=== PATIENT | male | born 1935 | race Caucasian/White ===

== ENCOUNTER 2018-08-26 06:27 | Day surgery (SDC) | payer MEDICARE ==
[2018-08-20 15:38] VITALS: BMI 23.6
[~2018-08-26 06:27] MED LIST: HEPARIN SODIUM,PORCINE 5,000 UNIT/ML 1 ML VIAL SQ ONE; ceFAZolin IN SWFI 2 GM/20 ML SYRINGE IVP ONE
[2018-08-26] MEDS ORDERED: LIDOCAINE 1% 20 ML VIAL (10MG/ML) FOR IV START INTRADERMA ONE ×2 (06:57→07:00)
[2018-08-26] MEDS ORDERED: LACTATED RINGERS 1,000 ML IV ONE ×4 (06:58→07:00)
[2018-08-26 07:04] LABS: Glucose,Whole Blood 126 mg/dL (75-99)
[2018-08-26] MEDS ORDERED: DEXAMETHASONE SOD PHOSPHATE 10 MG/ML 1 ML VIAL IV ONE (07:13)
[2018-08-26] MEDS ORDERED: ONDANSETRON 4 MG/2 ML VIAL IVP ONE ×2 (07:14→09:34)
[2018-08-26] MEDS ORDERED: MIDAZOLAM (PF) 2 MG/2 ML VIAL IV ONE (07:23)
[2018-08-26] MEDS ORDERED: fentaNYL (PF) 50 MCG/ML 2 ML AMP IV ONE (07:23)
[2018-08-26] MEDS ORDERED: LIDOCAINE 2%-EPI 1:100,000 20 ML VIAL ONE (07:54)
[2018-08-26] MEDS ORDERED: GLYCOPYRROLATE 0.2 MG/ML 2 ML VIAL ONE (07:54)
[2018-08-26] MEDS ORDERED: SUCCINYLCHOLINE CHLORIDE 100 MG/5 ML SYR IV ONE (07:54)
[2018-08-26] MEDS ORDERED: MIDAZOLAM 2 MG/2 ML VIAL ONE (07:54)
[2018-08-26] MEDS ORDERED: ROCURONIUM BROMIDE 10 MG/ML 10 ML VIAL IV ONE (07:54)
[2018-08-26] MEDS ORDERED: MORPHINE SULFATE 10 MG/ML SYRINGE ONE (07:54)
[2018-08-26] MEDS ORDERED: ROPIVACAINE 5 MG/ML 30 ML VIAL ONE (07:54)
[2018-08-26] MEDS ORDERED: fentaNYL (PF) 50 MCG/ML 2 ML AMP ONE (07:54)
[2018-08-26] MEDS ORDERED: LIDOCAINE 1% INJ 10MG/ML (20 ML MDV) ONE (07:54)
[2018-08-26] MEDS ORDERED: PROPOFOL 10 MG/ML 20 ML VIAL IV ONE (07:54)
[2018-08-26] MEDS ORDERED: NEOSTIGMINE 1 MG/ML 10 ML VIAL ONE (07:54)
--- NOTE | 2018-08-26 07:59 | P.ANPRN ---
Procedure Note - Anesthesia - Nerve Block Performed Right Transversus Abdominis Single Time Out Performed: Yes Date of Procedure: 08/26/18 Procedure Start Time: 07:20 Location of Patient Procedure: PreOp Indication: Acute Post-Operative Pain Specifically requested for management of pain by DrYeimy: Choco Parnell Sedation Type: Sedate with meaningful contact maintained Preparation: Sterile Prep Position: Supine Catheter: None Needle Gauge: 20, 21 Technique: Ultrasound Injectate: Other (see comment) (0.25% ropivacaine/0.5% lidocaine 30 mL) Adjunct: Epinephrine (see comment for dilution ratio) (1:200,000) Blood Aspirated: No Pain Paresthesia on Injection Noted: No Resistance on Injection: Normal Events: Uneventful and Well Tolerated
[2018-08-26] MEDS ORDERED: BUPIVACAIN-EPI 0.5%-1:200,000 30 ML VIAL SQ ONE (08:32)
[2018-08-26 09:08] VITALS: TEMP 94
--- NOTE | 2018-08-26 09:19 | P.OP ---
Date of Procedure: 08/26/18 Preoperative Diagnosis: Right inguinal hernia Postoperative Diagnosis: Bilateral inguinal hernia Procedure(s) Performed: Laparoscopic robotic-assisted repair of bilateral inguinal hernia Excision of right cord lipoma Anesthesia: PRUDENCE Surgeon: Choco Parnell Estimated Blood Loss (ml): 5 Pathology: other (Right cord lipoma) Condition: stable Disposition: PACU Description of Procedure: The patient's placed on the operating table in the supine position. The patient received general anesthesia. The patient's abdomen was prepped and draped in usual sterile fashion. The skin was anesthetized 1% local Xylocaine at the incision sites. Using an 11 blade a skin incision was made at the umbilicus. The fascia was grasped with a Leslie and then the peritoneal cavity was entered with the Veress needle. Position of the Veress needle was confirmed with a positive drop test. After adequate insufflation a 5 mm trocar was placed into the peritoneal cavity. The Laparoscope was placed the peritoneal cavity. And a robotic 8 mm trocar was placed in the right lateral position and then another 8 mm robotic trochars placed in the left lateral position. The original 5 mm trocar was exchanged for a 12 mm trocar. The patient was placed in reverse Trendelenburg and then the patient was docked to the robot. Next the peritoneum over top of the right inguinal hernia was incised and then using blunt and sharp dissection and electrocautery the hernia sac was dissected free from the floor of the inguinal canal. The cord lipoma was dissected free from the spermatic cord and sent to pathology. The hernia sac was completely reduced into the peritoneal cavity. And then using the Pro alteration inspector mesh the hernia was repaired. The peritoneum was then sutured with 20V lock suture. Next the peritoneum over top of the left inguinal hernia was incised and then u sing blunt and sharp dissection and electrocautery the hernia sac was dissected free from the floor of the inguinal canal. The hernia sac was completely reduced into the peritoneal cavity. And then using the Pro alteration inspector mesh the hernia was repaired. The peritoneum was then sutured with 20V lock suture. The patient was then undocked the robot. The needle was withdrawn from the peritoneal cavity. The umbilical trocar site was closed with 0 Ethibond suture. The skin was closed interrupted 3-0 Monocryl suture. Dermabond dressing was applied. Patient was sent to recovery in stable condition.
[2018-08-26 09:23] LABS: Glucose,Whole Blood 227 mg/dL (75-99)
[2018-08-26] MEDS ORDERED: INSULIN ASPART (NovoLOG) 100 UNIT/ML VIAL SQ ONE (09:26)
[2018-08-26] MEDS ORDERED: MORPHINE SULFATE 4 MG/ML SYRINGE IVP ONE (09:35)
[2018-08-26] MEDS ORDERED: HYDROcodone/APAP 5-325MG 1 EACH TAB PO ONE (10:17)
--- NOTE | 2018-08-26 10:24 | P.GSHP ---
History of Present Illness H&P Date: 08/26/18 Chief Complaint: Right inguinal hernia This 83-year-old male who has developed complaints of pain in his right groin. He seen Sergio found have a right inguinal hernia. He presents today for laparoscopic robotic-assisted repair. Past Medical History Past Medical History: Diabetes Mellitus, GERD/Reflux, Osteoarthritis (OA) Additional Past Medical History / Comment(s): not sure why he takes heart medications-thinks preventative due to diabetes, History of Any Multi-Drug Resistant Organisms: None Reported Past Surgical History: Appendectomy, Back Surgery, Orthopedic Surgery, Tonsillectomy Additional Past Surgical History / Comment(s): LT ROTATOR CUFF REPAIR , Past Anesthesia/Blood Transfusion Reactions: No Reported Reaction Smoking Status: Former smoker - Past Family History Mother Family Medical History: No Reported History Medications and Allergies Home Medications Medication Instructions Recorded Confirmed Type Cholecalciferol (Vitamin D3) 2,000 unit PO BID 08/20/18 08/26/18 History [Vitamin D3] L.acidoph,Paracasei, B.lactis 1 each PO DAILY 08/20/18 08/26/18 History [Probiotic] Losartan [Cozaar] 25 mg PO DAILY 08/20/18 08/26/18 History Lutein Tab 1 tab PO DAILY 08/20/18 08/26/18 History Magnesium Tab 1,000 mg PO HS 08/20/18 08/26/18 History Omeprazole 40 mg PO DAILY PRN 08/20/18 08/26/18 History Prostate Essential 1 tab PO DAILY 08/20/18 08/26/18 History Vitamin B Complex 1 each PO DAILY 08/20/18 08/26/18 History Vitamin E (Dl,Tocopheryl Acet) 400 unit PO DAILY 08/20/18 08/26/18 History [Vitamin E] Vitamin K Tab 100 mcg PO DAILY 08/20/18 08/26/18 History glipiZIDE [Glucotrol] 5 mg PO AC-BRKFST 08/20/18 08/26/18 History metFORMIN HCL [metFORMIN HCL ER] 750 mg PO BID 08/20/18 08/26/18 History Docusate [Colace] 100 mg PO BID #20 capsule 08/26/18 Rx HYDROcodone/APAP 5-325MG [Curtis 1 tab PO Q6HR PRN #10 tab 08/26/18 Rx 5-325] Allergies Allergy/AdvReac Type Severity Reaction Status Date / Time No Known Allergies Allergy Verified 08/26/18 06:58 Surgical - Exam Vital Signs Temp Pulse Resp BP Pulse Ox 97.4 F L 88 16 163/74 99 08/26/18 06:51 08/26/18 06:51 08/26/18 06:51 08/26/18 06:51 08/26/18 06:51 - General well developed, no distress - Eyes PERRL - ENT normal pinna - Neck no masses - Respiratory normal expansion - Cardiovascular Rhythm: regular - Abdomen Abdomen: soft, non tender Hernia: inguinal (Right inguinal hernia) Results - Labs Abnormal Lab Results - Last 24 Hours (Table) 08/26/18 08/26/18 Range/Units 06:55 09:15 POC Glucose (mg/dL) 126 H 227 H (75-99) mg/dL Assessment and Plan Assessment: Right angle hernia. We'll perform laparoscopic robotic-assisted repair.
[2018-08-26 10:34] LABS: Glucose,Whole Blood 206 mg/dL (75-99)
[2018-08-26 10:38] VITALS: BP 126/75; PULSE 86; RESP 18
== END 2018-08-26 11:19 | disposition home or self-care (01) ==
LOC: OR 06:27
PROVIDERS: ATTEND Surgery
DX: K40.20 Bilateral inguinal hernia, without obstruction or gangrene, not specified as recurrent (principal); D17.6 Benign lipomatous neoplasm of spermatic cord; E11.9 Type 2 diabetes mellitus without complications; K21.9 Gastro-esophageal reflux disease without esophagitis; M19.90 Unspecified osteoarthritis, unspecified site; Z87.891 Personal history of nicotine dependence; Z79.84 Long term (current) use of oral hypoglycemic drugs; Z79.891 Long term (current) use of opiate analgesic; Z79.899 Other long term (current) drug therapy; Z97.2 Presence of dental prosthetic device (complete) (partial)
CPT/HCPCS: 64486; 88304; 49650; C1781; J2250 ×2; J2270 ×2; J1644; J1100; J2710; J2405; J2001; J3010; J2795; J0330; J2704; J0690

== ENCOUNTER 2020-11-17 15:11 | Emergency (ER) | payer MEDICARE, OTHER ==
--- NOTE | 2020-11-17 16:15 | ED ---
Fall HPI <Jasmyn Landa - Last Filed: 11/17/20 16:15> - General Source: patient, family - History of Present Illness MD Complaint: fall -: hour(s) (6) Time: 11:00 Fall From: standing When Fall Occurred: 4-6 hours [place] Fall Witnessed: yes, by bystander Loss of Consciousness: none Prolonged Down Time?: no Symptoms Prior to Fall: none Location: face Location - Extremities: Right: Hand (wrist) Severity scale (1-10): 3 Quality: aching Context: tripped/slipped Associated Symptoms: other (facial laceration, bruising to right eye) <Kali Singletary - Last Filed: 11/17/20 22:37> - General Stated Complaint: Fall/Head injury Time Seen by Provider: 11/17/20 16:35 - History of Present Illness Initial Comments: Sarath is an 85yo M who presents to the emergency department today via private vehicle for evaluation of injury to the right wrist and right side of his forehead after a trip and fall at home. Patient reports he tripped over the tongue of a trailer onto outstretched right hand and hitting his head on the ground. Did not lose consciousness. Patient reports mild pain in his wrist 3/10 intensity. Patient states that his last tetanus vaccine was "not too long ago" (Jasmyn Landa) - Related Data Home Medications Medication Instructions Recorded Confirmed Cholecalciferol (Vitamin D3) 2,000 unit PO BID 08/20/18 11/17/20 [Vitamin D3] Losartan [Cozaar] 25 mg PO DAILY 08/20/18 11/17/20 Vitamin B Complex 1 cap PO DAILY 08/20/18 11/17/20 Vitamin E (Dl,Tocopheryl Acet) 400 unit PO DAILY 08/20/18 11/17/20 [Vitamin E] glipiZIDE [Glucotrol] 5 mg PO AC-BRKFST 08/20/18 11/17/20 metFORMIN HCL [metFORMIN HCL ER] 750 mg PO BID 08/20/18 11/17/20 Ascorbic Acid [Vitamin C] 1,000 mg PO DAILY 11/17/20 11/17/20 Cyanocobalamin (Vitamin B-12) 1,000 mcg PO DAILY 11/17/20 11/17/20 [Vitamin B-12] Zinc 50 mg PO DAILY 11/17/20 11/17/20 Previous Rx's Medication Instructions Recorded Cephalexin [Keflex] 500 mg PO Q6H 7 Days #28 cap 11/17/20 Allergies Allergy/AdvReac Type Severity Reaction Status Date / Time No Known Allergies Allergy Verified 11/17/20 18:07 Review of Systems ROS Other: All systems not noted in ROS Statement are negative. <Jasmyn Landa P - Last Filed: 11/17/20 16:15> ROS Other: All systems not noted in ROS Statement are negative. <Kali Singletary - Last Filed: 11/17/20 22:37> ROS Statement: Those systems with pertinent positive or pertinent negative responses have been documented in the HPI. Past Medical History Past Medical History: Diabetes Mellitus, GERD/Reflux, Osteoarthritis (OA) Additional Past Medical History / Comment(s): not sure why he takes heart medications-thinks preventative due to diabetes, History of Any Multi-Drug Resistant Organisms: None Reported Past Surgical History: Appendectomy, Back Surgery, Orthopedic Surgery, Tonsillectomy Additional Past Surgical History / Comment(s): LT ROTATOR CUFF REPAIR , Past Anesthesia/Blood Transfusion Reactions: No Reported Reaction Past Psychological History: No Psychological Hx Reported Past Alcohol Use History: Rare Additional Past Alcohol Use History / Comment(s): quit smoking 60 yrs ago, smoked for 2 yrs, 1 PPD Past Drug Use History: None Reported - Past Family History Mother Family Medical History: No Reported History <Jasmyn Landa P - Last Filed: 11/17/20 16:15> General Exam <Jasmyn Landa P - Last Filed: 11/17/20 16:15> General appearance: alert, in no apparent distress Head exam: Present: normocephalic, other (Ecchymosis to right thigh, 1 cm laceration to the right eyebrow) Eye exam: Present: PERRL, EOMI, other (Bruising and swelling to the right upper eyelid, no pain with extraocular eye movements). Absent: scleral icterus, nystagmus Pupils: Present: normal accommodation ENT exam: Present: normal exam, normal oropharynx, mucous membranes moist, other (Bruising and swelling to the right upper lip) Neck exam: Present: normal inspection, tenderness (Perispinal trapezius), full ROM. Absent: meningismus, lymphadenopathy Respiratory exam: Present: normal lung sounds bilaterally. Absent: respiratory distress, wheezes, rales, rhonchi, stridor, chest wall tenderness Cardiovascular Exam: Present: regular rate, normal rhythm, normal heart sounds. Absent: systolic murmur, diastolic murmur, rubs, gallop, clicks GI/Abdominal exam: Present: soft, normal bowel sounds. Absent: distended, tenderness, guarding, rebound, rigid Extremities exam: Present: normal inspection, full ROM, normal capillary refill. Absent: tenderness, pedal edema, joint swelling, calf tenderness Right Elbow exam: Present: normal inspection Forearm Wrist exam: Present: normal inspection, full ROM, tenderness (Right wrist). Absent: swelling, abrasion, laceration, ecchymosis, deformity, crepitus, erythema Hand Wrist exam: Present: normal inspection Neurosensory exam: Present: radial nerve intact, ulnar nerve intact, median nerve intact Vascular: Present: normal capillary refill, radial pulse. Absent: vascular compromise Back exam: Absent: tenderness, CVA tenderness (R), CVA tenderness (L), muscle spasm, vertebral tenderness Expanded Back exam: Present: saddle anesthesia Back exam: Negative Straight Leg Raising: Left, Right Neurological exam: Present: alert, oriented X3, CN II-XII intact Expanded Patient oriented to: Present: person, place, time Speech: Present: fluid speech Cranial nerves: EOM's Intact: Normal, Gag Reflex: Normal, Tongue Deviation: Normal, Nystagmus: Normal Cerebellar function: Finger to Nose: Normal, Heel to [place]: Normal Motor strength exam: RUE: 5, LUE: 5, RLE: 5, LLE: 5 Eye Response: (4) open spontaneously Motor Response: (6) obeys commands Verbal Response: (5) oriented Vito Total: 15 Psychiatric exam: Present: normal affect, normal mood Skin exam: Present: warm, dry, intact, normal color. Absent: rash, cyanosis, diaphoretic <Kali Singletary - Last Filed: 11/17/20 22:37> - General Exam Comments Initial Comments: Physical Exam GENERAL: Patient is well-developed and well-nourished. Patient is nontoxic and well-hydrated and is in no distress. HENT: Abrasion left forehead EYES: PERRL, EOMI PULMONARY: Unlabored respirations. CARDIOVASCULAR: RRR Warm and well perfused extremities ABDOMEN: Non-distended SKIN: No rashes or bruising : Deferred NEUROLOGIC: Alert and oriented Normal speech Normal gait MUSCULOSKELETAL: Moving all extremities with no apparent injury PSYCHIATRIC: No SI/HIa (Jasmyn Landa) Course Vital Signs 11/17/20 11/17/20 16:13 18:15 Temperature 97.9 F Pulse Rate 91 81 Respiratory 20 18 Rate Blood Pressure 150/76 151/79 O2 Sat by Pulse 99 97 Oximetry Procedures - Laceration Laceration #1 Consent Obtained: verbal consent Indication: laceration Site: face Size (cm): 1 Description: linear Depth: simple, single layer Pre-repair: irrigated extensively Type of Sutures: other (dermal glue) Patient Tolerated Procedure: well <Kali Singletary - Last Filed: 11/17/20 22:37> Medical Decision Making <Kali Singletary - Last Filed: 11/17/20 22:37> - Medical Decision Making 1 cm laceration to the right eyebrow closed with dermal glue after irrigation with normal saline. Patient states that his tetanus shot is up-to-date. He'll be placed on antibiotics prophylactically. CT of the head shows no intracranial hemorrhage, mass effect or midline shift. C-spine shows no acute fracture or dislocation. Lung apices are clear. X-ray of the right wrist shows no acute fracture or dislocation. There is no significant soft tissue swelling. Patient will be discharged with follow-up with his primary care doctor and directed to return for any worsening symptoms including signs of infection, fever increased pain, headache. (Kali Singletary) Disposition <Jasmyn Landa - Last Filed: 11/17/20 16:15> Is patient prescribed a controlled substance at d/c from ED?: No Time of Disposition: 18:45 <Kali Singletary - Last Filed: 11/17/20 22:37> Clinical Impression: Fall, Laceration, Wrist injury Disposition: HOME SELF-CARE Condition: Good Instructions (If sedation given, give patient instructions): Wrist Injury (ED), Fall Prevention for Older Adults (ED), Skin Adhesive Care (ED) Additional Instructions: Keep wound clean and dry, take antibiotics as prescribed, return to the emergency room with any new or worsening symptoms increased pain, headache, or signs of infection including redness, drainage or fever. Prescriptions: Cephalexin [Keflex] 500 mg PO Q6H 7 Days #28 cap Referrals: Isac Wallace MD [Primary Care Provider] - 1-2 days Orville Sanchez DO [Doctor of Osteopathic Medicine] - 1-2 days
[2020-11-17 16:16] VITALS: TEMP 97.9
[2020-11-17] MEDS ORDERED: TOPICAL SKIN ADHESIVE 1 EACH AMP TOPICAL ONE (16:47)
--- NOTE | 2020-11-17 17:20 | XR ---
EXAMINATION TYPE: XR wrist complete RT DATE OF EXAM: 11/17/2020 COMPARISON: NONE HISTORY: . Fall, injury, no deformity. TECHNIQUE: AP, oblique, lateral, and scaphoid views of the right wrist. FINDINGS: No acute fracture. No dislocation. There are degenerative changes worst at the first and se cond carpometacarpal joints. There are large loose bodies at the radial aspect of the hand at the lev el of the carpal bones. Normal mineralization. No significant soft tissue swelling. IMPRESSION: 1. No acute fracture or dislocation. 2. Degenerative changes and large loose bodies as above.
[2020-11-17 18:30] VITALS: BP 151/79; PULSE 81; RESP 18
--- NOTE | 2020-11-17 18:36 | CT ---
EXAMINATION TYPE: CT brain ronnie hickey con DATE OF EXAM: 11/17/2020 COMPARISON: HISTORY: Fall. CT DLP: 1405.1 mGycm Automated exposure control for dose reduction was used. TECHNIQUE: CT scan of the head and cervical spine are performed without contrast. FINDINGS: There is no acute intracranial hemorrhage, mass effect, or midline shift identified. No abnormal extra axial fluid collection. The ventricles and sulci are within normal limits in size. Gen eralized volume loss. Patchy white matter hypodensities likely sequela of chronic microvascular ische delmi change. Coarse calcification of the falx. No depressed calvarial fracture. Mastoid air cells are clear. Mucosal thickening of the left maxillary sinus. Periapical abscesses. Dextrocurvature of the cervical spine. Vertebral body heights are normal. There is no acute fracture. Multifactorial multilevel degenerative changes. No prevertebral soft tissue swelling. No dominant th yroid nodule. Lung apices are clear. IMPRESSION: 1. There is no acute fracture or dislocation evident in the cervical spine. 2. No acute intracranial hemorrhage, mass effect, or midline shift is seen.
== END 2020-11-17 19:04 | disposition home or self-care (01) ==
LOC: EC 15:11
DX: S01.111A Laceration without foreign body of right eyelid and periocular area, initial encounter (principal); S69.91XA Unspecified injury of right wrist, hand and finger(s), initial encounter; S00.531A Contusion of lip, initial encounter; E11.9 Type 2 diabetes mellitus without complications; Z79.84 Long term (current) use of oral hypoglycemic drugs; Z87.891 Personal history of nicotine dependence; W01.0XXA Fall on same level from slipping, tripping and stumbling without subsequent striking against object, initial encounter; Y92.89 Other specified places as the place of occurrence of the external cause
CPT/HCPCS: 12011; 70450; 72125; 99284

== ENCOUNTER → 2020-11-21 | Outpatient (CLI) | payer OTHER ==
--- NOTE | 2020-11-23 08:55 | CT ---
EXAMINATION TYPE: CT chest wo/w con DATE OF EXAM: 11/21/2020 COMPARISON: Outside chest x-ray October 27, 2020 HISTORY: Abnormal xray. CT DLP: 435.2 mGycm. Automated Exposure Control for Dose Reduction was Utilized. TECHNIQUE: CT scan of the thorax is performed following without and with IV Contrast, patient inject ed with 80 mL of Isovue M300. FINDINGS: LUNGS: Mild biapical pleural/parenchymal scarring. Dependent atelectasis bilateral lower lobes. No oliva spicious greater than 5 mm nodules or masses with particular attention to the left upper lobe at the area of x-ray concern. No pleural effusion or pneumothorax seen bilaterally. MEDIASTINUM: There are no greater than 1 cm hilar or mediastinal lymph nodes. No cardiomegaly or p ericardial effusion is seen. Moderate to severe coronary artery calcification is present. OTHER: Slight scoliosis in the upper thoracic spine. Exaggerated kyphosis cervical thoracic junction. Moderate disc space narrowing T6-T7 level. IMPRESSION: No suspicious pulmonary nodules or masses. No suspicious thoracic adenopathy. No acute pu lmonary process.
== END | disposition home or self-care (01) ==
LOC: RADCTMAIN 10:33
DX: R91.8 Other nonspecific abnormal finding of lung field (principal)
CPT/HCPCS: 82565; 84520; 71270; Q9967

== ENCOUNTER 2021-02-16 14:23 | Inpatient (IN) | payer MEDICARE ==
[2021-02-16 15:14] LABS: Basophils % (A) 1 %; Eosinophils % (A) 0 %; HCT 40.9 % (39.0-53.0); HGB 13.9 gm/dL (13.0-17.5); Lymphocytes # (A) 0.5 k/uL (1.0-4.8); Lymphocytes % (A) 9 %; MCH 32.5 pg (25.0-35.0); MCHC 33.9 g/dL (31.0-37.0); MCV 95.8 fL (80.0-100.0); Mean Platelet Volume 6.9; Monocytes # (A) 0.3 k/uL (0-1.0); Monocytes % (A) 6 %; Neutrophils # (A) 4.8 k/uL (1.3-7.7); Neutrophils % (A) 83 %; Platelet Count 381 k/uL (150-450); RBC 4.27 m/uL (4.30-5.90); RDW 13.2 % (11.5-15.5); WBC 5.9 k/uL (3.8-10.6)
[2021-02-16 15:23] LABS: INR 0.9 (<1.2); Partial Thromboplastin Time 22.4 sec (22.0-30.0); Prothrombin Time 10.1 sec (9.0-12.0)
[2021-02-16 15:27] LABS: Total Bilirubin 1.2 mg/dL (0.2-1.3)
[2021-02-16] MEDS ORDERED: DEXAMETHASONE SOD PHOSPHATE 10 MG/ML 1 ML VIAL IVP STA (18:32)
[2021-02-16] MEDS ORDERED: SODIUM CHLORIDE 0.9% 1,000 ML IV ONE (18:32)
--- NOTE | 2021-02-16 18:35 | XR ---
EXAMINATION TYPE: XR chest 2V DATE OF EXAM: 02/16/2021 COMPARISON: NONE HISTORY: Short of breath TECHNIQUE: 2 views FINDINGS: Heart is normal. There is coarse interstitial and to a lesser extent airspace infiltrate in both lungs. There are no hilar masses. Mediastinum is normal. There is no pleural effusion. IMPRESSION: Bilateral patchy pulmonary infiltrates. Normal heart.
[2021-02-16 19:17] LABS: C Reactive Protein 18.2 mg/dL (<1.0)
--- NOTE | 2021-02-16 19:22 | ED ---
General Adult HPI - General Chief complaint: Shortness of Breath Stated complaint: Covid+, SOB Time Seen by Provider: 02/16/21 18:05 Source: patient Mode of arrival: wheelchair Limitations: no limitations - History of Present Illness Initial comments: 86 year-old male patient presents for weakness, fatigue, decreased appetite and shortness of breath. He was diagnosed with COVID on Friday, did have monoclonal antibody infusion. He believes he has been sick between 2-3 weeks. He states he is not eating or drinking. He has lost 8lbs. He has not taken any other medications for his symptoms. Did start breathing treatments at home yesterday. Family states he has had oxygen saturations in the low 80s. He has history of diabetes and acid reflux. Patient denies any recent rash, chest pain, abdominal pain, nausea, vomiting, diarrhea, constipation, back pain, numbness, tingling, dizziness, hematuria, dysuria, urinary urgency, urinary frequency, headache, visual changes, or any other complaints. - Related Data Home Medications Medication Instructions Recorded Confirmed Cholecalciferol (Vitamin D3) 2,000 unit PO BID 08/20/18 02/16/21 [Vitamin D3] Losartan [Cozaar] 25 mg PO DAILY 08/20/18 02/16/21 Vitamin B Complex 1 cap PO DAILY 08/20/18 02/16/21 Vitamin E (Dl,Tocopheryl Acet) 400 unit PO DAILY 08/20/18 02/16/21 [Vitamin E] glipiZIDE [Glucotrol] 5 mg PO AC-BRKFST 08/20/18 02/16/21 metFORMIN HCL [metFORMIN HCL ER] 750 mg PO BID 08/20/18 02/16/21 Ascorbic Acid [Vitamin C] 1,000 mg PO DAILY 11/17/20 02/16/21 Cyanocobalamin (Vitamin B-12) 1,000 mcg PO DAILY 11/17/20 02/16/21 [Vitamin B-12] Zinc 50 mg PO DAILY 11/17/20 02/16/21 Albuterol Nebulized [Ventolin 2.5 mg INHALATION RT-Q6H PRN 02/16/21 02/16/21 Nebulized] Allergies Allergy/AdvReac Type Severity Reaction Status Date / Time No Known Allergies Allergy Verified 02/16/21 14:43 Review of Systems ROS Statement: Those systems with pertinent positive or pertinent negative responses have been documented in the HPI. ROS Other: All systems not noted in ROS Statement are negative. Past Medical History Past Medical History: Diabetes Mellitus, GERD/Reflux, Osteoarthritis (OA) Additional Past Medical History / Comment(s): not sure why he takes heart medications-thinks preventative due to diabetes, History of Any Multi-Drug Resistant Organisms: None Reported Past Surgical History: Appendectomy, Back Surgery, Orthopedic Surgery, Tonsillectomy Additional Past Surgical History / Comment(s): LT ROTATOR CUFF REPAIR , Past Anesthesia/Blood Transfusion Reactions: No Reported Reaction Past Psychological History: No Psychological Hx Reported Smoking Status: Former smoker Past Alcohol Use History: Rare Past Drug Use History: None Reported - Past Family History Mother Family Medical History: No Reported History General Exam Limitations: no limitations General appearance: alert, in no apparent distress, other (This is a well-dev eloped, well-nourished elderly male patient in no acute distress.) Eye exam: Present: normal appearance, PERRL, EOMI. Absent: scleral icterus, conjunctival injection, periorbital swelling ENT exam: Present: normal exam, normal oropharynx, mucous membranes moist Respiratory exam: Present: normal lung sounds bilaterally. Absent: respiratory distress, wheezes, rales, rhonchi, stridor Cardiovascular Exam: Present: regular rate, normal rhythm, normal heart sounds. Absent: systolic murmur, diastolic murmur, rubs, gallop, clicks GI/Abdominal exam: Present: soft, normal bowel sounds. Absent: distended, tenderness, guarding, rebound, rigid Neurological exam: Present: alert, oriented X3, CN II-XII intact Psychiatric exam: Present: normal affect, normal mood Skin exam: Present: warm, dry, intact, normal color. Absent: rash Course Vital Signs 02/16/21 02/16/21 14:43 19:21 Temperature 98.0 F Pulse Rate 95 Respiratory 20 22 Rate Blood Pressure 112/62 O2 Sat by Pulse 96 Oximetry Medical Decision Making - Medical Decision Making 86-year-old male patient presented to the emergency department for evaluation of weakness, fatigue, shortness of breath after being diagnosed with COVID-19. Physical examination did reveal clear lung sounds. Soft nontender abdomen. Patient does exhibit weakness. Labs reviewed and did reveal elevated LDH and CRP. He is given dexamethasone IV, started on vitamins. Given IV fluids. He'll be admitted to the hospital for weakness and failure to thrive. He does have bilateral patchy pneumonia on x-ray. Patient family is agreeable this plan. Case discussed with my attending Dr. Nava. - Lab Data Result diagrams: 02/16/21 15:10 02/16/21 15:10 Lab Results 02/16/21 02/16/21 02/16/21 Range/Units 15:10 15:10 15:10 WBC 5.9 (3.8-10.6) k/uL RBC 4.27 L (4.30-5.90) m/uL Hgb 13.9 (13.0-17.5) gm/dL Hct 40.9 (39.0-53.0) % MCV 95.8 (80.0-100.0) fL MCH 32.5 (25.0-35.0) pg MCHC 33.9 (31.0-37.0) g/dL RDW 13.2 (11.5-15.5) % Plt Count 381 (150-450) k/uL MPV 6.9 Neutrophils % 83 % Lymphocytes % 9 % Monocytes % 6 % Eosinophils % 0 % Basophils % 1 % Neutrophils # 4.8 (1.3-7.7) k/uL Lymphocytes # 0.5 L (1.0-4.8) k/uL Monocytes # 0.3 (0-1.0) k/uL Eosinophils # 0.0 (0-0.7) k/uL Basophils # 0.0 (0-0.2) k/uL PT 10.1 (9.0-12.0) sec INR 0.9 (<1.2) APTT 22.4 (22.0-30.0) sec Sodium 137 (137-145) mmol/L Potassium 4.0 (3.5-5.1) mmol/L Chloride 102 (98-107) mmol/L Carbon Dioxide 25 (22-30) mmol/L Anion Gap 10 mmol/L BUN 20 (9-20) mg/dL Creatinine 1.12 (0.66-1.25) mg/dL Est GFR (CKD-EPI)AfAm 69 (>60 ml/min/1.73 sqM) Est GFR (CKD-EPI)NonAf 59 (>60 ml/min/1.73 sqM) Glucose 284 H (74-99) mg/dL Calcium 9.0 (8.4-10.2) mg/dL Total Bilirubin 1.2 (0.2-1.3) mg/dL AST 42 (17-59) U/L ALT 36 (4-49) U/L Alkaline Phosphatase 137 H (38-126) U/L Lactate Dehydrogenase (313-618) U/L Troponin I (0.000-0.034) ng/mL C-Reactive Protein (<1.0) mg/dL Total Protein 6.0 L (6.3-8.2) g/dL Albumin 3.0 L (3.5-5.0) g/dL 02/16/21 02/16/21 Range/Units 15:10 18:50 WBC (3.8-10.6) k/uL RBC (4.30-5.90) m/uL Hgb (13.0-17.5) gm/dL Hct (39.0-53.0) % MCV (80.0-100.0) fL MCH (25.0-35.0) pg MCHC (31.0-37.0) g/dL RDW (11.5-15.5) % Plt Count (150-450) k/uL MPV Neutrophils % % Lymphocytes % % Monocytes % % Eosinophils % % Basophils % % Neutrophils # (1.3-7.7) k/uL Lymphocytes # (1.0-4.8) k/uL Monocytes # (0-1.0) k/uL Eosinophils # (0-0.7) k/uL Basophils # (0-0.2) k/uL PT (9.0-12.0) sec INR (<1.2) APTT (22.0-30.0) sec Sodium (137-145) mmol/L Potassium (3.5-5.1) mmol/L Chloride (98-107) mmol/L Carbon Dioxide (22-30) mmol/L Anion Gap mmol/L BUN (9-20) mg/dL Creatinine (0.66-1.25) mg/dL Est GFR (CKD-EPI)AfAm (>60 ml/min/1.73 sqM) Est GFR (CKD-EPI)NonAf (>60 ml/min/1.73 sqM) Glucose (74-99) mg/dL Calcium (8.4-10.2) mg/dL Total Bilirubin (0.2-1.3) mg/dL AST (17-59) U/L ALT (4-49) U/L Alkaline Phosphatase (38-126) U/L Lactate Dehydrogenase 787 H (313-618) U/L Troponin I <0.012 (0.000-0.034) ng/mL C-Reactive Protein 18.2 H (<1.0) mg/dL Total Protein (6.3-8.2) g/dL Albumin (3.5-5.0) g/dL - Radiology Data Radiology results: report reviewed, image reviewed 2 views of the chest are obtained. Report reviewed in its entirety. Impression by Dr. Peacock shows bilateral patchy pulmonary infiltrates. Normal heart. Disposition Clinical Impression: Weakness, Failure to thrive, Pneumonia due to COVID-19 virus Disposition[facility] Condition: Serious Referrals: Isac Wallace MD [Primary Care Provider] - 1-2 days Decision to Admit Reason: Admit from EC Decision Date: 02/16/21 Decision Time: 19:44
[2021-02-16] MEDS ORDERED: NALOXONE 0.4 MG/ML 1 ML VIAL IV PRN (19:41)
[2021-02-16] MEDS ORDERED: ACETAMINOPHEN TAB 325 MG TAB PO PRN (19:42)
[2021-02-16] MEDS: SODIUM CHLORIDE 0.9% 1,000 ML IV SCH (20:36)
[2021-02-16 20:38] LABS: Glucose,Whole Blood 225 mg/dL (75-99)
[2021-02-16] MEDS: ZINC SULFATE 220 MG CAP PO SCH (22:09)
[2021-02-16] MEDS: CHOLECALCIFEROL 25 MCG (1000 IU) TABLET PO SCH (22:09)
[2021-02-16] MEDS: ASCORBIC ACID 500 MG TAB PO SCH (22:09)
[2021-02-16 22:56] LABS: Glucose,Whole Blood 193 mg/dL (75-99)
[2021-02-17] MEDS ORDERED: guaiFENesin-DM 100-10MG/5ML 10 ML CUP PO SCH
[2021-02-17] MEDS ORDERED: guaiFENesin-DM 100-10MG/5ML 10 ML CUP PO PRN (05:57)
[2021-02-17 07:51] LABS: Glucose,Whole Blood 278 mg/dL (75-99)
[2021-02-17] MEDS: INSULIN ASPART (NovoLOG) 100 UNIT/ML VIAL SQ SCH ×4 (08:26→21:18)
[2021-02-17] MEDS: DEXAMETHASONE SOD PHOSPHATE 10 MG/ML 1 ML VIAL IVP SCH (08:26)
[2021-02-17] MEDS: CHOLECALCIFEROL 25 MCG (1000 IU) TABLET PO SCH (08:27)
[2021-02-17] MEDS: ASCORBIC ACID 500 MG TAB PO SCH (08:27)
[2021-02-17 10:35] VITALS: BMI 20.9
[2021-02-17 12:10] LABS: Glucose,Whole Blood 196 mg/dL (75-99)
[2021-02-17] MEDS: ZINC SULFATE 220 MG CAP PO SCH (13:06)
[2021-02-17] MEDS: SODIUM CHLORIDE 0.9% 1,000 ML IV SCH (15:47)
[2021-02-17 17:33] LABS: Glucose,Whole Blood 248 mg/dL (75-99)
[2021-02-17 21:10] LABS: Glucose,Whole Blood 130 mg/dL (75-99)
[2021-02-18 07:36] LABS: Glucose,Whole Blood 173 mg/dL (75-99)
[2021-02-18] MEDS: INSULIN ASPART (NovoLOG) 100 UNIT/ML VIAL SQ SCH ×4 (08:58→21:09)
[2021-02-18] MEDS: CHOLECALCIFEROL 25 MCG (1000 IU) TABLET PO SCH (08:59)
[2021-02-18] MEDS: DEXAMETHASONE SOD PHOSPHATE 10 MG/ML 1 ML VIAL IVP SCH (08:59)
[2021-02-18] MEDS: ASCORBIC ACID 500 MG TAB PO SCH (09:00)
[2021-02-18] MEDS: ZINC SULFATE 220 MG CAP PO SCH (09:00)
[2021-02-18 12:23] LABS: Glucose,Whole Blood 186 mg/dL (75-99)
[2021-02-18] MEDS: SODIUM CHLORIDE 0.9% 1,000 ML IV SCH (14:47)
[2021-02-18] MEDS ORDERED: ALBUTEROL NEBULIZED 2.5 MG/3 ML INHALATION PRN (16:07)
--- NOTE | 2021-02-18 16:17 | P.HPIM ---
History of Present Illness H&P Date: 02/17/21 Chief Complaint: Shortness of breath 86 year-old male patient presents for weakness, fatigue, decreased appetite and shortness of breath. He was diagnosed with COVID on Friday, did have monoclonal antibody infusion. He believes he has been sick between 2-3 weeks. He states he is not eating or drinking. He has lost 8lbs. He has not taken any other medications for his symptoms. Did start breathing treatments at home yesterday. Family states he has had oxygen saturations in the low 80s. He has history of diabetes and acid reflux. Patient denies any recent rash, chest pain, abdominal pain, nausea, vomiting, diarrhea, constipation, back pain, numbness, tingling, dizziness, hematuria, dysuria, urinary urgency, urinary frequency, headache, visual changes, or any other complaints. Labs reviewed and did reveal elevated LDH of 787 and CRP elevated at 18.2; WBC 5.9, hemoglobin 13.9, platelets of 381, sodium 137, potassium 4.0, BUN/creatinine of 20/1.12, blood glucose of 284. He is given dexamethasone IV, started on vitamins. Given IV fluids. He'll be admitted to the hospital for weakness and failure to thrive. He does have bilateral patchy pneumonia on x- ray but lung sounds remain clear; also patient reports being sick for 2-3 weeks Review of Systems REVIEW OF SYSTEMS: CONSTITUTIONAL: Weakness, fatigue and decreased appetite and weight loss. HEENT: No recent visual problems or hearing problems. Denied any sore throat. CARDIOVASCULAR: No chest pain, orthopnea, PND, no palpitations, no syncope. PULMONARY: shortness of breath, no cough, no hemoptysis. GASTROINTESTINAL: No diarrhea, no nausea, no vomiting, no abdominal pain. NEUROLOGICAL: No headaches, no weakness, no numbness. HEMATOLOGICAL: Denies any bleeding or petechiae. GENITOURINARY: Denies any burning micturition, frequency, or urgency. MUSCULOSKELETAL/RHEUMATOLOGICAL: Denies any joint pain, swelling, or any muscle pain. ENDOCRINE: Denies any polyuria or polydipsia. The rest of the 14-point review of systems is negative. Past Medical History Past Medical History: Diabetes Mellitus, GERD/Reflux, Hypertension, Osteoarthritis (OA) Additional Past Medical History / Comment(s): not sure why he takes heart medications-thinks preventative due to diabetes, History of Any Multi-Drug Resistant Organisms: None Reported Past Surgical History: Appendectomy, Back Surgery, Orthopedic Surgery, Tonsillectomy Additional Past Surgical History / Comment(s): LT ROTATOR CUFF REPAIR , Past Anesthesia/Blood Transfusion Reactions: No Reported Reaction Past Psychological History: No Psychological Hx Reported Smoking Status: Former smoker Past Alcohol Use History: Rare Additional Past Alcohol Use History / Comment(s): quit smoking 60 yrs ago, smoked for 2 yrs, 1 PPD Past Drug Use History: None Reported - Past Family History Mother Family Medical History: No Reported History Medications and Allergies Home Medications Medication Instructions Recorded Confirmed Type Cholecalciferol (Vitamin D3) 2,000 unit PO BID 08/20/18 02/16/21 History [Vitamin D3] Losartan [Cozaar] 25 mg PO DAILY 08/20/18 02/16/21 History Vitamin B Complex 1 cap PO DAILY 08/20/18 02/16/21 History Vitamin E (Dl,Tocopheryl Acet) 400 unit PO DAILY 08/20/18 02/16/21 History [Vitamin E] glipiZIDE [Glucotrol] 5 mg PO AC-BRKFST 08/20/18 02/16/21 History metFORMIN HCL [metFORMIN HCL ER] 750 mg PO BID 08/20/18 02/16/21 History Ascorbic Acid [Vitamin C] 1,000 mg PO DAILY 11/17/20 02/16/21 History Cyanocobalamin (Vitamin B-12) 1,000 mcg PO DAILY 11/17/20 02/16/21 History [Vitamin B-12] Zinc 50 mg PO DAILY 11/17/20 02/16/21 History Albuterol Nebulized [Ventolin 2.5 mg INHALATION RT-Q6H PRN 02/16/21 02/16/21 History Nebulized] Allergies Allergy/AdvReac Type Severity Reaction Status Date / Time No Known Allergies Allergy Verified 02/16/21 14:43 Physical Exam Vitals: Vital Signs Temp Pulse Pulse Resp BP BP Pulse Ox 02/17/21 14:29 97.5 F L 87 16 126/68 95 02/17/21 07:00 98.5 F 84 16 130/70 94 L 02/17/21 02:35 97.8 F 79 18 145/76 93 L 02/17/21 02:15 98.2 F 84 19 129/71 93 L 02/17/21 00:25 22 02/16/21 22:32 98.7 F 87 20 136/73 93 L 02/16/21 21:53 74 18 147/88 95 02/16/21 20:39 82 18 132/84 95 02/16/21 19:21 22 Intake and Output 02/17/21 02/17/21 02/17/21 06:59 14:59 22:59 Intake Total 600 636 Balance 600 636 Intake: Intake, IV Titration 350 400 Amount Sodium Chloride 0.9% 1, 350 400 000 ml @ 50 mls/hr IV . Q20H AUNG Rx#:[id number] Oral 250 236 Other: # Voids 2 Weight 64.41 kg General appearance: alert, in no apparent distress, other (This is a well- developed, well-nourished elderly male patient in no acute distress.) Eye exam: Present: normal appearance, PERRL, EOMI. Absent: scleral icterus, conjunctival injection, periorbital swelling ENT exam: Present: normal exam, normal oropharynx, mucous membranes moist Respiratory exam: Present: normal lung sounds bilaterally. Absent: respiratory distress, wheezes, rales, rhonchi, stridor Cardiovascular Exam: Present: regular rate, normal rhythm, normal heart sounds. Absent: systolic murmur, diastolic murmur, rubs, gallop, clicks GI/Abdominal exam: Present: soft, normal bowel sounds. Absent: distended, tenderness, guarding, rebound, rigid Neurological exam: Present: alert, oriented X3, CN II-XII intact Psychiatric exam: Present: normal affect, normal mood Skin exam: Present: warm, dry, intact, normal color. Absent: rash Results CBC & Chem 7: 02/16/21 15:10 02/16/21 15:10 Labs: Abnormal Lab Results - Last 24 Hours (Table) 02/16/21 02/16/21 02/16/21 Range/Units 15:10 15:10 18:50 RBC 4.27 L (4.30-5.90) m/uL Lymphocytes # 0.5 L (1.0-4.8) k/uL Glucose 284 H (74-99) mg/dL POC Glucose (mg/dL) (75-99) mg/dL Alkaline Phosphatase 137 H (38-126) U/L Lactate Dehydrogenase 787 H (313-618) U/L C-Reactive Protein 18.2 H (<1.0) mg/dL Total Protein 6.0 L (6.3-8.2) g/dL Albumin 3.0 L (3.5-5.0) g/dL 02/16/21 02/16/21 02/17/21 Range/Units 20:37 22:54 07:45 RBC (4.30-5.90) m/uL Lymphocytes # (1.0-4.8) k/uL Glucose (74-99) mg/dL POC Glucose (mg/dL) 225 H 193 H 278 H (75-99) mg/dL Alkaline Phosphatase (38-126) U/L Lactate Dehydrogenase (313-618) U/L C-Reactive Protein (<1.0) mg/dL Total Protein (6.3-8.2) g/dL Albumin (3.5-5.0) g/dL 02/17/21 Range/Units 12:06 RBC (4.30-5.90) m/uL Lymphocytes # (1.0-4.8) k/uL Glucose (74-99) mg/dL POC Glucose (mg/dL) 196 H (75-99) mg/dL Alkaline Phosphatase (38-126) U/L Lactate Dehydrogenase (313-618) U/L C-Reactive Protein (<1.0) mg/dL Total Protein (6.3-8.2) g/dL Albumin (3.5-5.0) g/dL Thrombosis Risk Factor Assmnt - Choose All That Apply Any of the Below Risk Factors Present?: No Other Risk Factors: Yes Each Risk Factor Represents 3 Points: Age 75 years or older Other congenital or acquired thrombophilia - If yes, enter type in comment: No Thrombosis Risk Factor Assessment Total Risk Factor Score: 3 Thrombosis Risk Factor Assessment Level: Moderate Risk Assessment and Plan Assessment: 1. COVID-19 bilateral pneumonia - Patient reports being symptomatic for 2-3 weeks; saturating above 94-95% on room air - Has been placed on dexamethasone 6 mg IV daily, Lovenox 30 mg subcu daily; COVID-19 vitamin cocktail - We'll continue to monitor inflammatory markers periodically - We will consult pulmonary and ID for further recommendations 2. Weakness/for oral intake; adult failure to thrive - Patient has had 8 pound weight loss recently possibly related to poor oral intake - Dietary consult for nutrition recommendations 3. Elevated inflammatory markers; related to COVID-19 infection; we will monit or inflammatory markers periodically 4. Hyperglycemia/diabetes mellitus; place patient on Accu-Cheks every before meals and at bedtime with insulin sliding scale; we will hold off on oral hypoglycemic agents to oral intake partners are improved; dietary has been consulted for nutritional recommendations 5. Gastroesophageal reflux disease; Protonix 40 mg daily DVT prophylaxis; SCDs/subcu Lovenox CODE STATUS; full code
[2021-02-18] MEDS ORDERED: ALBUTEROL HFA INHALER INHALATION PRN (17:07)
[2021-02-18 17:26] LABS: Glucose,Whole Blood 329 mg/dL (75-99)
[2021-02-18] MEDS: ENOXAPARIN 30 MG/0.3 ML SYRINGE SQ SCH (17:49)
--- NOTE | 2021-02-18 18:54 | P.PN ---
Subjective Progress Note Date: 02/18/21 Principal diagnosis: COVID-19 viral pneumonia Protein calorie malnutrition Significant weight loss Adult failure to thrive 86 year-old male patient presents for weakness, fatigue, decreased appetite and shortness of breath. He was diagnosed with COVID on Friday, did have monoclonal antibody infusion. He believes he has been sick between 2-3 weeks. He states he is not eating or drinking. He has lost 8lbs. He has not taken any other medications for his symptoms. Did start breathing treatments at home yesterday. Family states he has had oxygen saturations in the low 80s. He has history of diabetes and acid reflux. Patient denies any recent rash, chest pain, abdominal pain, nausea, vomiting, diarrhea, constipation, back pain, numbness, tingling, dizziness, hematuria, dysuria, urinary urgency, urinary frequency, headache, visual changes, or any other complaints. Labs reviewed and did reveal elevated LDH of 787 and CRP elevated at 18.2; WBC 5.9, hemoglobin 13.9, platelets of 381, sodium 137, potassium 4.0, BUN/creatinine of 20/1.12, blood glucose of 284. He is given dexamethasone IV, started on vitamins. Given IV fluids. He'll be admitted to the hospital for weakness and failure to thrive. He does have bilateral patchy pneumonia on x-ra y but lung sounds remain clear; also patient reports being sick for 2-3 weeks 02/18/2021 Continues to saturate above 93-96% on room air; vitals are stable with temperature of 97.5, pulse 66, respirations 16 and blood pressure 127/45 Patient takes losartan at home; we will continue to hold due to softer blood pressures; monitor blood pressure closely with plans to initiate antihypertensive therapy once blood pressures improved Blood glucose remains elevated; patient is currently on Accu-Cheks with sliding scale; we will resume home dose of metformin and continue to monitor Accu-Cheks Remains on IV Decadron, Lovenox and COVID-19 migraine cocktail; ID and pulmonary recommendations are pending Objective - Vital Signs Vital signs: Vital Signs Temp 97.5 F L 02/18/21 14:12 Pulse 66 02/18/21 14:12 Resp 16 02/18/21 14:12 BP 127/45 02/18/21 14:12 Pulse Ox 93 L 02/18/21 14:12 Intake & Output 02/17/21 02/18/21 02/18/21 18:59 06:59 18:59 Intake Total 636 1350 236 Balance 636 1350 236 Weight 64.41 kg Intake: Intake, IV Titration 400 650 Amount Sodium Chloride 0.9% 1, 400 650 000 ml @ 50 mls/hr IV . Q20H AUNG Rx#:[id number] Oral 236 700 236 Other: # Voids 4 2 # Bowel Movements 0 - Exam General appearance: alert, in no apparent distress, other (This is a well- developed, well-nourished elderly male patient in no acute distress.) Eye exam: Present: normal appearance, PERRL, EOMI. Absent: scleral icterus, conjunctival injection, periorbital swelling ENT exam: Present: normal exam, normal oropharynx, mucous membranes moist Respiratory exam: Present: normal lung sounds bilaterally. Absent: respiratory distress, wheezes, rales, rhonchi, stridor Cardiovascular Exam: Present: regular rate, normal rhythm, normal heart sounds. Absent: systolic murmur, diastolic murmur, rubs, gallop, clicks GI/Abdominal exam: Present: soft, normal bowel sounds. Absent: distended, tenderness, guarding, rebound, rigid Neurological exam: Present: alert, oriented X3, CN II-XII intact Psychiatric exam: Present: normal affect, normal mood Skin exam: Present: warm, dry, intact, normal color. Absent: rash - Labs CBC & Chem 7: 02/16/21 15:10 02/16/21 15:10 Labs: Abnormal Lab Results - Last 24 Hours (Table) 02/17/21 02/17/21 02/18/21 Range/Units 17:29 21:02 07:33 POC Glucose (mg/dL) 248 H 130 H 173 H (75-99) mg/dL 02/18/21 Range/Units 12:21 POC Glucose (mg/dL) 186 H (75-99) mg/dL Assessment and Plan Assessment: 1. COVID-19 bilateral pneumonia - Patient reports being symptomatic for 2-3 weeks; saturating above 94-95% on room air - Has been placed on dexamethasone 6 mg IV daily, Lovenox 30 mg subcu daily; COVID-19 vitamin cocktail - We'll continue to monitor inflammatory markers periodically - We will consult pulmonary and ID for further recommendations 2. Weakness/for oral intake; adult failure to thrive - Patient has had 8 pound weight loss recently possibly related to poor oral intake - Dietary consult for nutrition recommendations 3. Elevated inflammatory markers; related to COVID-19 infection; we will monitor inflammatory markers periodically 4. Hyperglycemia/diabetes mellitus; place patient on Accu-Cheks every before meals and at bedtime with insulin sliding scale; we will hold off on oral hypoglycemic agents to oral intake partners are improved; dietary has been consulted for nutritional recommendations 5. Gastroesophageal reflux disease; Protonix 40 mg daily DVT prophylaxis; SCDs/subcu Lovenox CODE STATUS; full code
[2021-02-18 20:58] LABS: Glucose,Whole Blood 268 mg/dL (75-99)
[2021-02-19 07:44] LABS: Glucose,Whole Blood 150 mg/dL (75-99)
--- NOTE | 2021-02-19 08:02 | P.PN ---
Subjective Progress Note Date: 02/19/21 Principal diagnosis: Weakness. The patient is an 86-year-old white male who was recently had antibiotic infusion for COVID-19. He states significant weakness. Poor appetite is o therwise noted. No voiding difficulties Objective - Vital Signs Vital signs: Vital Signs Temp 97.7 F 02/19/21 07:00 Pulse 69 02/19/21 07:00 Resp 18 02/19/21 07:00 BP 126/80 02/19/21 07:00 Pulse Ox 97 02/19/21 07:00 Intake & Output 02/18/21 02/19/21 02/19/21 18:59 06:59 18:59 Intake Total 236 Balance 236 Intake: Oral 236 Other: # Voids 2 2 # Bowel Movements 0 - Constitutional General appearance: Present: average body habitus - EENT Eyes: Absent: abnormal pupil - Neck Neck: Absent: lymphadenopathy - Respiratory Respiratory: bilateral: CTA - Cardiovascular Rhythm: regular Heart sounds: normal: S1 Abnormal Heart Sounds: Absent: S3 Gallop - Gastrointestinal General gastrointestinal: Present: soft. Absent: tenderness - Integumentary Integumentary: Present: normal - Labs CBC & Chem 7: 02/16/21 15:10 02/16/21 15:10 Labs: Abnormal Lab Results - Last 24 Hours (Table) 02/18/21 02/18/21 02/18/21 Range/Units 12:21 17:21 20:56 D-Dimer (<0.60) mg/L FEU POC Glucose (mg/dL) 186 H 329 H 268 H (75-99) mg/dL 02/19/21 02/19/21 Range/Units 04:10 07:42 D-Dimer 1.18 H (<0.60) mg/L FEU POC Glucose (mg/dL) 150 H (75-99) mg/dL Assessment and Plan (1) Failure to thrive Current Visit: Yes Status: Acute Code(s): [id number] - SNOMED Code(s): 16366185 (2) Pneumonia due to COVID-19 virus Current Visit: Yes Status: Acute Code(s): U07.1 - COVID-19; J12.82 - PNEUMONIA DUE TO CORONAVIRUS DISEASE 2018 SNOMED Code(s): 836768705553525942 (3) Weakness Current Visit: Yes Status: Acute Code(s): R53.1 - WEAKNESS SNOMED Code(s): 20093845 Plan: Continue current regimen of treatment. CBC and CMP in a.m. Question need for dietary input for appropriate by mouth intake.
--- NOTE | 2021-02-19 08:54 | P.CONS ---
History of Present Illness - Reason for Consult Consult date: 02/18/21 covid 19 pneumonia Requesting physician: Timoteo Moses - Chief Complaint weakenss and decreased oral intake x days - History of Present Illness History of present illness : Patient is 86-year-old male presenting to the hospital 2 days ago for evaluation of weakness fatigue decreased appetite and shortness of breath in this patient was diagnosed with a Covid about a week ago on Friday and has received monoclonal antibody infusion however the patient has been sick for about 2 to 3 weeks before presentation to the hospital patient did have decreased oral intake and able to eat or drink and has lost 8 pounds has been clear generalized weakness unable to get up and stand around family states the patient did have low O2 sats in the 80s with the symptom the patient was brought to the hospital on arrival to the ER the patient was afebrile and no fever was recorded subsequently patient is currently satting 95 to 97% on room air did have a normal white count with lymphopenia D-dimer was mildly elevated creatinine was normal liver enzymes are normal patient did have a chest x-ray bilateral patchy pulmonary infiltrate normal heart patient was admitted to [facility] infectious disease consultation was requested this evening for further management of his underlying COVID-19 infection Review of system: CONSTITUTIONAL: Positive for weakness denies fever. EYES: No complaint. ENT: No complaint. RESPIRATORY: As per history of present illness. CARDIOVASCULAR: No complaint. GENITOURINARY: No complaint. GASTROINTESTINAL: No complaint. MUSCULOSKELETAL: No complaint. INTEGUMENTARY: No complaint. PSYCHOLOGIC: No complaint. ENDOCRINE: No complaint. NEUROLOGIC: No complaint. Past medical history : Reviewed, documented below Past surgical history : Reviewed, documented below Social history: Reviewed, documented below Medications: Reviewed, as documented below EXAMINATION: Vital sigans= Reviewed and documented below GENERAL DESCRIPTION: Elderly male lying in bed, no distress. No tachypnea or accessory muscle of respiration use. HEENT: Shows Pallor , no scleral icterus. Oral mucous membrane is dry. NECK: Trachea central, no thyromegaly. LUNGS: Unlabored breathing. Decrease intensity of breath sounds. No wheeze or crackle. HEART: S1, S2, regular rate and rhythm. ABDOMEN: Soft, no tenderness , guarding or rigidity EXTREMITIES: No edema of feet. SKIN: No rash, no masses palpable. NEUROLOGICAL: The patient is awake, alert, oriented x3, mood and affect normal. LABS AND RADIOLOGY: Reviewed results see below Assessment : Patient is 88-year-old male presented to hospital with generalized weakness decreased oral intake panel did have some hypoxic in the outpatient setting patient symptom has been going on for more than 2 weeks and has received a monoclonal antibodies in the outpatient setting likely with a mild Covid illness and is currently out of the therapeutic window for remdesivir and no evidence of any secondary bacterial pneumonia Plan: 1-patient to continue with the dexamethasone or Lovenox zinc and ascorbic acid 2-droplet isolation and respiratory support 3-no need for systemic antibiotic therapy We will follow on clinical condition and cultures to further adjust medication if needed Thank you for this consultation we will follow the patient along with you Past Medical History Past Medical History: Diabetes Mellitus, GERD/Reflux, Hypertension, Osteoarthritis (OA) Additional Past Medical History / Comment(s): not sure why he takes heart medications-thinks preventative due to diabetes, History of Any Multi-Drug Resistant Organisms: None Reported Past Surgical History: Appendectomy, Back Surgery, Orthopedic Surgery, Tonsillectomy Additional Past Surgical History / Comment(s): LT ROTATOR CUFF REPAIR , Past Anesthesia/Blood Transfusion Reactions: No Reported Reaction Past Psychological History: No Psychological Hx Reported Smoking Status: Former smoker Past Alcohol Use History: Rare Additional Past Alcohol Use History / Comment(s): quit smoking 60 yrs ago, smoked for 2 yrs, 1 PPD Past Drug Use History: None Reported - Past Family History Mother Family Medical History: No Reported History Medications and Allergies Home Medications Medication Instructions Recorded Confirmed Type Cholecalciferol (Vitamin D3) 2,000 unit PO BID 08/20/18 02/16/21 History [Vitamin D3] Losartan [Cozaar] 25 mg PO DAILY 08/20/18 02/16/21 History Vitamin B Complex 1 cap PO DAILY 08/20/18 02/16/21 History Vitamin E (Dl,Tocopheryl Acet) 400 unit PO DAILY 08/20/18 02/16/21 History [Vitamin E] glipiZIDE [Glucotrol] 5 mg PO AC-BRKFST 08/20/18 02/16/21 History metFORMIN HCL [metFORMIN HCL ER] 750 mg PO BID 08/20/18 02/16/21 History Ascorbic Acid [Vitamin C] 1,000 mg PO DAILY 11/17/20 02/16/21 History Cyanocobalamin (Vitamin B-12) 1,000 mcg PO DAILY 11/17/20 02/16/21 History [Vitamin B-12] Zinc 50 mg PO DAILY 11/17/20 02/16/21 History Albuterol Nebulized [Ventolin 2.5 mg INHALATION RT-Q6H PRN 02/16/21 02/16/21 History Nebulized] Allergies Allergy/AdvReac Type Severity Reaction Status Date / Time No Known Allergies Allergy Verified 02/16/21 14:43 Physical Exam Vitals: Vital Signs Temp Pulse Resp BP Pulse Ox 02/18/21 14:12 97.5 F L 66 16 127/45 93 L 02/18/21 14:00 20 02/18/21 08:00 18 02/18/21 07:00 98.4 F 67 17 131/68 96 02/18/21 02:37 98.0 F 83 19 136/66 92 L 02/18/21 02:00 18 02/17/21 19:44 97.4 F L 85 22 161/75 95 02/17/21 19:20 21 Intake and Output 02/18/21 02/18/21 02/18/21 06:59 14:59 22:59 Intake Total 1000 236 Balance 1000 236 Intake: Intake, IV Titration 500 Amount Sodium Chloride 0.9% 1, 500 000 ml @ 50 mls/hr IV . Q20H [facility] Rx#:[id number] Oral 500 236 Other: # Voids 4 2 # Bowel Movements 0 Results CBC & Chem 7: 02/16/21 15:10 02/16/21 15:10 Labs: Abnormal Lab Results - Last 24 Hours (Table) 02/17/21 02/18/21 02/18/21 Range/Units 21:02 07:33 12:21 POC Glucose (mg/dL) 130 H 173 H 186 H (75-99) mg/dL 02/18/21 Range/Units 17:21 POC Glucose (mg/dL) 329 H (75-99) mg/dL
[2021-02-19] MEDS ORDERED: NON FORMULARY DRUG (Vitamin B Complex [Vitamin B Complex] 1 EACH Capsule) PO SCH (09:00)
[2021-02-19] MEDS ORDERED: NON FORMULARY DRUG (Zinc [Zinc] 50 MG Tablet) PO SCH (09:00)
[2021-02-19 09:04] LABS: HCT 34.6 % (39.6-50.0); HGB 11.6 g/dL (13.0-17.0); MCH 31.5 pg (27.0-32.0); MCHC 33.5 g/dL (32.0-37.0); Mean Platelet Volume 8.5 fL (9.5-12.2); Platelet Count 469 X 10*3/uL (140-440); RBC 3.68 X 10*6/uL (4.40-5.60); RDW 12.6 % (11.5-14.5); WBC 7.42 X 10*3/uL (4.50-10.00)
[2021-02-19 09:12] LABS: African American GFR (CKD) 70.1 (60.0-200.0); Blood Urea Nitrogen 17.6 mg/dL (9.0-27.0); C Reactive Protein 2.9 mg/dL (0.00-0.80); Calcium 9.1 mg/dL (8.7-10.3); Non-African American GFR(CKD) 60.5 (60.0-200.0); Potassium 4.1 mmol/L (3.5-5.5)
[2021-02-19] MEDS: DEXAMETHASONE SOD PHOSPHATE 10 MG/ML 1 ML VIAL IVP SCH (09:21)
[2021-02-19] MEDS: INSULIN ASPART (NovoLOG) 100 UNIT/ML VIAL SQ SCH ×4 (09:21→20:39)
[2021-02-19] MEDS: ASCORBIC ACID 500 MG TAB PO SCH (09:22)
[2021-02-19] MEDS: CHOLECALCIFEROL 25 MCG (1000 IU) TABLET PO SCH (09:22)
[2021-02-19] MEDS: LOSARTAN 25 MG TAB PO SCH (09:22)
[2021-02-19] MEDS: PANTOPRAZOLE 40 MG TABLET PO SCH (09:22)
[2021-02-19] MEDS: ENOXAPARIN 30 MG/0.3 ML SYRINGE SQ SCH (09:22)
[2021-02-19] MEDS: ZINC SULFATE 220 MG CAP PO SCH (09:22)
[2021-02-19] MEDS: CYANOCOBALAMIN 500 MCG TAB PO SCH (09:22)
[2021-02-19] MEDS: SODIUM CHLORIDE 0.9% 1,000 ML IV SCH (09:22)
[2021-02-19] MEDS: VITAMIN E (DL,TOCOPHERYL ACET) 400 UNIT (180 MG) CAP PO SCH (09:22)
[2021-02-19 10:09] LABS: Basophils # (M) 0 X 10*3/uL (0.00-0.10); Eosinophils # (M) 0 X 10*3/uL (0.04-0.35); Lymphocytes # (M) 0.89 X 10*3/uL (0.90-5.00); Monocytes # (M) 0.82 X 10*3/uL (0.20-1.00); Myelocytes % 2 % (0-0); Neutrophils # (M) 5.57 X 10*3/uL (2.00-8.90); Neutrophils % (M) 75 %
[2021-02-19 12:03] LABS: Glucose,Whole Blood 175 mg/dL (75-99)
--- NOTE | 2021-02-19 13:55 | P.CNPUL ---
History of Present Illness Consult date: 02/19/21 Requesting physician: Alex Herrera Reason for consult: dyspnea, cough, hypoxemia, pneumonia, abnormal CXR/CT Chief complaint: Shortness of breath and cough, weakness. History of present illness: Pulmonary consult dated 02/19/2021. This is an 86-year-old male, seen in room 637. The patient was seen in the emergency department on 02/16/2021. He came into the emergency department for complaints of shortness of breath weakness, fatigue, poor appetite, and just generally not feeling well. He apparently was diagnosed as having coronavirus infection on the previous Friday. The patient has been sick for 2-3 weeks. He did receive monoclonal antibody infusion. He apparently lost somewhere between 8-10 pound chest because of his poor oral intake. He apparently did start some breathing treatments at home the day before he came to the emergency department. His saturations at home apparently been in the low 80s. The patient has a history of gastroesophageal reflux disease, hypertension, and diabetes. Currently, he is resting comfortably in room 637. He does have a frequent dry harsh cough. White count 7.42, hemoglobin 11.6, hematocrit 34.6, and platelet count 469,000. D-dimer is 1.18. Sodium and potassium normal. Chloride 111, CO2 21, anion gap 10, urine 17.6 and creatinine 1.1. Ferritin 649. LDH is 251 with a C-reactive protein of 2.90. Chest x-ray does show diffuse bilateral infiltrates. Review of Systems REVIEW OF SYSTEMS: CONSTITUTIONAL: Weakness and fatigue. NEUROLOGIC: [ Negative.] HEENT: [ Negative.] CARDIAC: Shortness of breath and cough. PULMONARY: [Negative.] GI: Decreased food, and liquids, with poor appetite and weight loss. : [Negative.] RHEUMATOLOGIC: [ Negative.] IMMUNOLOGIC: [ Negative.] ENDOCRINE: [Negative. ] DERMATOLOGIC: [Negative.] Past Medical History Past Medical History: Diabetes Mellitus, GERD/Reflux, Hypertension, Osteoarthritis (OA) Additional Past Medical History / Comment(s): not sure why he takes heart medications-thinks preventative due to diabetes, History of Any Multi-Drug Resistant Organisms: None Reported Past Surgical History: Appendectomy, Back Surgery, Orthopedic Surgery, Tonsillectomy Additional Past Surgical History / Comment(s): LT ROTATOR CUFF REPAIR , Past Anesthesia/Blood Transfusion Reactions: No Reported Reaction Past Psychological History: No Psychological Hx Reported Smoking Status: Former smoker Past Alcohol Use History: Rare Additional Past Alcohol Use History / Comment(s): quit smoking 60 yrs ago, smoked for 2 yrs, 1 PPD Past Drug Use History: None Reported - Past Family History Mother Family Medical History: No Reported History Medications and Allergies Home Medications Medication Instructions Recorded Confirmed Type Cholecalciferol (Vitamin D3) 2,000 unit PO BID 08/20/18 02/16/21 History [Vitamin D3] Losartan [Cozaar] 25 mg PO DAILY 08/20/18 02/16/21 History Vitamin B Complex 1 cap PO DAILY 08/20/18 02/16/21 History Vitamin E (Dl,Tocopheryl Acet) 400 unit PO DAILY 08/20/18 02/16/21 History [Vitamin E] glipiZIDE [Glucotrol] 5 mg PO AC-BRKFST 08/20/18 02/16/21 History metFORMIN HCL [metFORMIN HCL ER] 750 mg PO BID 08/20/18 02/16/21 History Ascorbic Acid [Vitamin C] 1,000 mg PO DAILY 11/17/20 02/16/21 History Cyanocobalamin (Vitamin B-12) 1,000 mcg PO DAILY 11/17/20 02/16/21 History [Vitamin B-12] Zinc 50 mg PO DAILY 11/17/20 02/16/21 History Albuterol Nebulized [Ventolin 2.5 mg INHALATION RT-Q6H PRN 02/16/21 02/16/21 History Nebulized] Allergies Allergy/AdvReac Type Severity Reaction Status Date / Time No Known Allergies Allergy Verified 02/16/21 14:43 Physical Exam Osteopathic Statement: *. No significant issues noted on an osteopathic structural exam other than those noted in the History and Physical/Consult. Vitals: Vital Signs Temp Pulse Resp BP Pulse Ox 02/19/21 13:36 98.7 F 85 17 130/74 95 02/19/21 07:00 97.7 F 69 18 126/80 97 02/19/21 02:38 97.7 F 71 21 144/75 95 02/18/21 20:53 97.5 F L 76 20 152/79 93 L 02/18/21 20:00 17 02/18/21 14:12 97.5 F L 66 16 127/45 93 L 02/18/21 14:00 20 Intake and Output 02/18/21 02/19/21 02/19/21 22:59 06:59 14:59 Intake Total 236 Balance 236 Intake: Oral 236 Other: # Voids 1 2 No acute distress, oriented 3. No respiratory distress. Room air saturations 95%. Frequent dry cough. HEENT examination is grossly unremarkable. Neck supple. Full range of motion. No adenopathy thyromegaly or neck vein distention. Cardiovascular examination reveals regular rhythm rate. S1-S2 normal. No S3 or S4. No discernible murmur noted. Heart rate 85 bpm. Lungs reveal diffuse scattered mild to moderate rhonchi. No wheezes or crackles. Breath sounds equal bilaterally. Abdomen soft bowel sounds are heard. No masses or tenderness. Extremities are intact. No cyanosis clubbing or edema. Skin is without rash or lesion. Neurologic examination is brief but nonfocal. Results - Laboratory Findings CBC and BMP: 02/19/21 04:10 02/19/21 04:10 PT/INR, D-dimer PT 10.1 sec (9.0-12.0) 02/16/21 15:10 INR 0.9 (<1.2) 02/16/21 15:10 D-Dimer 1.18 mg/L FEU (<0.60) H 02/19/21 04:10 Abnormal lab findings: Abnormal Labs 02/16/21 02/16/21 02/16/21 15:10 15:10 18:50 RBC 4.27 L Hgb Hct Plt Count Plt Count Comment MPV Myelocytes % Lymphocytes # 0.5 L Lymphocytes # (Manual) Eosinophils # (Manual) D-Dimer Chloride Glucose 284 H POC Glucose (mg/dL) Ferritin Alkaline Phosphatase 137 H Lactate Dehydrogenase 787 H C-Reactive Protein 18.2 H Total Protein 6.0 L Albumin 3.0 L 02/16/21 02/16/21 02/17/21 20:37 22:54 07:45 RBC Hgb Hct Plt Count Plt Count Comment MPV Myelocytes % Lymphocytes # Lymphocytes # (Manual) Eosinophils # (Manual) D-Dimer Chloride Glucose POC Glucose (mg/dL) 225 H 193 H 278 H Ferritin Alkaline Phosphatase Lactate Dehydrogenase C-Reactive Protein Total Protein Albumin 02/17/21 02/17/21 02/17/21 12:06 17:29 21:02 RBC Hgb Hct Plt Count Plt Count Comment MPV Myelocytes % Lymphocytes # Lymphocytes # (Manual) Eosinophils # (Manual) D-Dimer Chloride Glucose POC Glucose (mg/dL) 196 H 248 H 130 H Ferritin Alkaline Phosphatase Lactate Dehydrogenase C-Reactive Protein Total Protein Albumin 02/18/21 02/18/21 02/18/21 07:33 12:21 17:21 RBC Hgb Hct Plt Count Plt Count Comment MPV Myelocytes % Lymphocytes # Lymphocytes # (Manual) Eosinophils # (Manual) D-Dimer Chloride Glucose POC Glucose (mg/dL) 173 H 186 H 329 H Ferritin Alkaline Phosphatase Lactate Dehydrogenase C-Reactive Protein Total Protein Albumin 02/18/21 02/19/21 02/19/21 20:56 04:10 04:10 RBC 3.68 L Hgb 11.6 L Hct 34.6 L Plt Count 469 H Plt Count Comment INCREASED A MPV 8.5 L Myelocytes % 2 H Lymphocytes # Lymphocytes # (Manual) 0.89 L Eosinophils # (Manual) 0 L D-Dimer 1.18 H Chloride Glucose POC Glucose (mg/dL) 268 H Ferritin Alkaline Phosphatase Lactate Dehydrogenase C-Reactive Protein Total Protein Albumin 02/19/21 02/19/21 02/19/21 04:10 07:42 11:56 RBC Hgb Hct Plt Count Plt Count Comment MPV Myelocytes % Lymphocytes # Lymphocytes # (Manual) Eosinophils # (Manual) D-Dimer Chloride 111 H Glucose 142 H POC Glucose (mg/dL) 150 H 175 H Ferritin 649.0 H Alkaline Phosphatase Lactate Dehydrogenase 251 H C-Reactive Protein 2.90 H Total Protein Albumin - Diagnostic Findings Chest x-ray: image reviewed Assessment and Plan Assessment: Acute hypoxemic respiratory failure secondary to coronavirus associated pneumonia. Weakness, fatigue, poor oral intake, dehydration, all secondary to coronavirus i nfection. History of hypertension. History of diabetes mellitus. History of osteoarthritis. Prior history of tobacco use. Plan: Plan dated 02/19/2021. The patient has been sick for 2-3 weeks, and therefore not a candidate for REM. The patient should receive Lovenox 40 mg subcu daily, and Decadron 6 mg either orally or IV daily. In addition, the patient should continue on vitamin C, vitamin D3, and zinc. Additional recommendations and suggestions are forthcoming. He gets Robitussin-DM for his cough. We will continue to follow make recommendations where appropriate. Prognosis is guarded. Time with Patient: Greater than 30
--- NOTE | 2021-02-19 16:17 | PN ---
PROGRESS NOTE DATE OF SERVICE: 02/19/2021 REASON FOR FOLLOWUP: COVID-19 infection. INTERVAL HISTORY: The patient is afebrile. The patient is currently breathing comfortably on room air. The patient denies having any chest pain, shortness of breath or cough. Complaining of feeling weak. He did have occasional cough, not bringing up any sputum. No abdominal pain or diarrhea. PHYSICAL EXAMINATION: Blood pressure 126/80 with a pulse of 69, temperature 97.7. He is 97% on room air. General description is an elderly male lying in bed in no distress. Respiratory system: Unlabored breathing, decreased breath sounds at the base. No wheeze. Heart S1, S2. Regular. Abdomen soft, no tenderness. LABS: Hemoglobin is 11, white count of 7, creatinine 1.1. DIAGNOSTIC IMPRESSION AND PLAN: Patient admitted to hospital with acute COVID-19 infection in this patient who presented to hospital hospital not significantly hypoxic, responding to the decadron, Lovenox, zinc and ascorbic acid. To continue along with respiratory support. Continue with supportive care. MMODL / IJN: [id number] /
[2021-02-19 17:29] LABS: Glucose,Whole Blood 267 mg/dL (75-99)
[2021-02-19 20:10] LABS: Glucose,Whole Blood 305 mg/dL (75-99)
[2021-02-20] MEDS: SODIUM CHLORIDE 0.9% 1,000 ML IV SCH (03:51)
[2021-02-20 05:46] LABS: HCT 39.4 % (39.0-53.0); HGB 13.2 gm/dL (13.0-17.5); MCHC 33.7 g/dL (31.0-37.0); MCV 95.1 fL (80.0-100.0); Mean Platelet Volume 6.8; Platelet Count 593 k/uL (150-450); RBC 4.14 m/uL (4.30-5.90); RDW 13.1 % (11.5-15.5)
[2021-02-20 05:59] LABS: ALT 39 U/L (4-49); AST 33 U/L (17-59); African American GFR (CKD) 63 (>60 ml/min/1.73 sqM); Albumin 2.7 g/dL (3.5-5.0); Alkaline Phosphatase 93 U/L (38-126); Anion Gap 5 mmol/L; Blood Urea Nitrogen 21 mg/dL (9-20); Calcium 9.8 mg/dL (8.4-10.2); Carbon Dioxide 24 mmol/L (22-30); Chloride 109 mmol/L (98-107); Globulin 2.8 g/dL; Glucose 127 mg/dL (74-99); Non-African American GFR(CKD) 55 (>60 ml/min/1.73 sqM); Potassium 4.6 mmol/L (3.5-5.1); Sodium 138 mmol/L (137-145); Total Bilirubin 0.6 mg/dL (0.2-1.3); Total Protein 5.5 g/dL (6.3-8.2)
[2021-02-20 06:54] LABS: Glucose,Whole Blood 121 mg/dL (75-99)
[2021-02-20] MEDS: INSULIN ASPART (NovoLOG) 100 UNIT/ML VIAL SQ SCH (07:20)
[2021-02-20 07:37] VITALS: BP 147/78; PULSE 75; RESP 18; TEMP 97.6
[2021-02-20] MEDS ORDERED: MAGNESIUM HYDROXIDE 2,400 MG/10 ML CUP PO PRN (08:42)
--- NOTE | 2021-02-20 08:45 | P.DS ---
Providers Date of admission: 02/17/21 13:53 Attending physician: Isac Wallace Consults: 02/18/21 15:43 Consult Physician Routine Consulting Provider: Jack Cruz Consult Reason/Comments: COVID-19 pneumonia Do you want consulting provider notified?: Yes 02/18/21 15:44 Consult Physician Routine Consulting Provider: Jasen Ny Consult Reason/Comments: COVID-19 pneumonia Do you want consulting provider notified?: Yes Primary care physician: Isac Wallace - Discharge Diagnosis(es) (1) Failure to thrive Current Visit: Yes Status: Acute (2) Pneumonia due to COVID-19 virus Current Visit: Yes Status: Acute (3) Weakness Current Visit: Yes Status: Acute Hospital Course: The patient was admitted for or failure to thrive related to consultation secondary to COVID-19 pneumonia. The patient did quite well after being given appropriate dexamethasone treatment. He has an underlying history of fairly well-controlled diabetes. Ambulating and tolerating diet prior to discharge. The patient is breathing on room air appropriately. Mild constipation is noted. We will go ahead and give appropriate laxative. He'll follow-up with me in about 5-7 days. Patient Condition at Discharge: Stable Plan - Discharge Summary Discharge Rx Participant: Yes New Discharge Prescriptions: New Dexamethasone 6 mg PO DAILY #7 tablet Continue glipiZIDE [Glucotrol] 5 mg PO AC-BRKFST Losartan [Cozaar] 25 mg PO DAILY metFORMIN HCL [metFORMIN HCL ER] 750 mg PO BID Vitamin B Complex 1 cap PO DAILY Vitamin E (Dl,Tocopheryl Acet) [Vitamin E (400 Iu = 180 mg)] 400 unit PO DAILY Cholecalciferol (Vitamin D3) [Vitamin D3] 2,000 unit PO BID Zinc 50 mg PO DAILY Cyanocobalamin (Vitamin B-12) [Vitamin B-12] 1,000 mcg PO DAILY Ascorbic Acid [Vitamin C] 1,000 mg PO DAILY Albuterol Nebulized [Ventolin Nebulized] 2.5 mg INHALATION RT-Q6H PRN PRN Reason: Shortness Of Breath Discharge Medication List Cholecalciferol (Vitamin D3) [Vitamin D3] 2,000 unit PO BID 08/20/18 [History] Losartan [Cozaar] 25 mg PO DAILY 08/20/18 [History] Vitamin B Complex 1 cap PO DAILY 08/20/18 [History] Vitamin E (Dl,Tocopheryl Acet) [Vitamin E (400 Iu = 180 mg)] 400 unit PO DAILY 08/20/18 [History] glipiZIDE [Glucotrol] 5 mg PO AC-BRKFST 08/20/18 [History] metFORMIN HCL [metFORMIN HCL ER] 750 mg PO BID 08/20/18 [History] Ascorbic Acid [Vitamin C] 1,000 mg PO DAILY 11/17/20 [History] Cyanocobalamin (Vitamin B-12) [Vitamin B-12] 1,000 mcg PO DAILY 11/17/20 [History] Zinc 50 mg PO DAILY 11/17/20 [History] Albuterol Nebulized [Ventolin Nebulized] 2.5 mg INHALATION RT-Q6H PRN 02/16/21 [History] Dexamethasone 6 mg PO DAILY #7 tablet 02/20/21 [Rx] Follow up Appointment(s)/Referral(s): Isac Wallace MD [Primary Care Provider] - 1-2 days
[2021-02-20] MEDS ORDERED: ENOXAPARIN 40 MG/0.4 ML SYRINGE SQ SCH (09:00)
[2021-02-20] MEDS: DEXAMETHASONE SOD PHOSPHATE 10 MG/ML 1 ML VIAL IVP SCH (09:44)
[2021-02-20] MEDS: ASCORBIC ACID 500 MG TAB PO SCH (09:44)
[2021-02-20] MEDS: CYANOCOBALAMIN 500 MCG TAB PO SCH (09:44)
[2021-02-20] MEDS: LOSARTAN 25 MG TAB PO SCH (09:44)
[2021-02-20] MEDS: CHOLECALCIFEROL 25 MCG (1000 IU) TABLET PO SCH (09:44)
[2021-02-20] MEDS: VITAMIN E (DL,TOCOPHERYL ACET) 400 UNIT (180 MG) CAP PO SCH (09:44)
[2021-02-20] MEDS: ZINC SULFATE 220 MG CAP PO SCH (09:44)
[2021-02-20] MEDS: PANTOPRAZOLE 40 MG TABLET PO SCH (09:44)
--- NOTE | 2021-02-20 11:36 | P.PN ---
Subjective Progress Note Date: 02/20/21 This is an 86-year-old male, seen in room 637. The patient was seen in the emergency department on 02/16/2021. He came into the emergency department for complaints of shortness of breath weakness, fatigue, poor appetite, and just generally not feeling well. He apparently was diagnosed as having coronavirus infection on the previous Friday. The patient has been sick for 2-3 weeks. He did receive monoclonal antibody infusion. He apparently lost somewhere between 8-10 pound chest because of his poor oral intake. He apparently did start some breathing treatments at home the day before he came to the emergency department. His saturations at home apparently been in the low 80s. The patient has a history of gastroesophageal reflux disease, hypertension, and diabetes. Currently, he is resting comfortably in room 637. He does have a frequent dry harsh cough. White count 7.42, hemoglobin 11.6, hematocrit 34.6, and platelet count 469,000. D-dimer is 1.18. Sodium and potassium normal. Chloride 111, CO2 21, anion gap 10, urine 17.6 and creatinine 1.1. Ferritin 649. LDH is 251 with a C-reactive protein of 2.90. Chest x-ray does show diffuse bilateral infiltrates. The patient is seen today 02/20/2021 in follow-up on the regular medical floor. He is currently sitting up in bed. Awake and alert in no acute distress. He is maintaining O2 saturations in the mid 90s on room air. Afebrile. Hemodynamically stable. White count 8.0. Hemoglobin 13.2. Sodium 138. Potassium 4.6. Creatinine 1.20. AST 33. ALT 39. Glucose 127. He is being continued on Decadron, Lovenox, vitamin supplements. Objective - Vital Signs Vital signs: Vital Signs Temp 97.6 F 02/20/21 07:36 Pulse 75 02/20/21 07:36 Resp 18 02/20/21 07:36 BP 147/78 02/20/21 07:36 Pulse Ox 94 L 02/20/21 07:36 Intake & Output 02/19/21 02/20/21 02/20/21 18:59 06:59 18:59 Intake Total 236 118 Balance 236 118 Weight 64.41 kg Intake: Oral 236 118 Other: # Voids 2 3 - Exam GENERAL EXAM: Alert, pleasant 86-year-old gentleman, on room air, comfortable in no apparent distress. HEAD: Normocephalic. EYES: Normal reaction of pupils, equal size. NOSE: Clear with pink turbinates. THROAT: No erythema or exudates. NECK: No masses, no JVD. CHEST: No chest wall deformity. LUNGS: Equal air entry with faint crackles in the posterior bases. CVS: S1 and S2 normal with no audible murmur, regular rhythm. ABDOMEN: No hepatosplenomegaly, normal bowel sounds, no guarding or rigidity. SPINE: No scoliosis or deformity SKIN: No rashes CENTRAL NERVOUS SYSTEM: No focal deficits, tone is normal in all 4 extremities. EXTREMITIES: There is no peripheral edema. No clubbing, no cyanosis. Peripheral pulses are intact. - Labs CBC & Chem 7: 02/20/21 04:51 02/20/21 04:51 Labs: Abnormal Lab Results - Last 24 Hours (Table) 02/19/21 02/19/21 02/19/21 Range/Units 11:56 17:27 20:09 RBC (4.30-5.90) m/uL Plt Count (150-450) k/uL Chloride (98-107) mmol/L BUN (9-20) mg/dL Glucose (74-99) mg/dL POC Glucose (mg/dL) 175 H 267 H 305 H (75-99) mg/dL Total Protein (6.3-8.2) g/dL Albumin (3.5-5.0) g/dL 02/20/21 02/20/21 02/20/21 Range/Units 04:51 04:51 06:52 RBC 4.14 L (4.30-5.90) m/uL Plt Count 593 H (150-450) k/uL Chloride 109 H (98-107) mmol/L BUN 21 H (9-20) mg/dL Glucose 127 H (74-99) mg/dL POC Glucose (mg/dL) 121 H (75-99) mg/dL Total Protein 5.5 L (6.3-8.2) g/dL Albumin 2.7 L (3.5-5.0) g/dL Assessment and Plan Assessment: 1 Acute hypoxemic respiratory failure secondary to coronavirus associated pneumonia. 2 Weakness, fatigue, poor oral intake, dehydration, all secondary to coronavirus infection. 3 History of hypertension. 4 History of diabetes mellitus. 5 History of osteoarthritis. 6 Prior history of tobacco use. Plan The patient was seen and evaluated Stable from the pulmonary standpoint On room air oxygen Complete a ten-day course of Decadron Follow-up in our office in 3-4 weeks I, the cosigning physician, performed a history & physical examination of the patient. Lungs sounds crackles in the posterior bases. Maintaining good O2 saturations in the 90s on room air. I discussed the assessment and plan of care with my nurse practitioner, Norah Shook. I attest to the above note as dictated by her.
[2021-02-20 11:56] LABS: Glucose,Whole Blood 203 mg/dL (75-99)
--- NOTE | 2021-02-20 15:01 | PN ---
PROGRESS NOTE DATE OF SERVICE: 02/20/2021 REASON FOR FOLLOWUP: COVID-19 pneumonia. INTERVAL HISTORY: Patient is afebrile. The patient is currently breathing comfortably on room air. Denies having chest pain. Still complaining of weakness. He did have occasional cough, not bringing up any sputum. No abdominal pain or diarrhea. PHYSICAL EXAMINATION: Blood pressure 147/78 with a pulse of 75, temperature is 97.6. He is 96% on room air. General description is an elderly male lying in bed in no distress. Respiratory system: Unlabored breathing, decreased intensity in breath sounds, with no wheeze. Heart S1, S2. Regular rate and rhythm. Abdomen soft, no tenderness. LABS: Hemoglobin is 13.2, white count 8.6, creatinine is 1.20. DIAGNOSTIC IMPRESSION AND PLAN: Patient with acute Covid 19 pneumonia in this patient who did have mild illness. Overall improvement with current supportive treatment. Short course of Dexamethasone along with zinc and ascorbic acid. No need for systemic antibiotic therapy. MMODL / IJN: [id number] /
== END 2021-02-20 13:24 | disposition home or self-care (01) | DRG 177 ==
LOC: EC 14:23 → 6NMEDSUR 20:53 → OBSVTOIN 02-17 13:53
PROVIDERS: ADMIT Family Medicine; ATTEND Family Medicine
DX: U07.1 COVID-19 (principal); J96.01 Acute respiratory failure with hypoxia; J12.82 Pneumonia due to coronavirus disease 2019; E46 Unspecified protein-calorie malnutrition; I10 Essential (primary) hypertension; E86.0 Dehydration; E11.65 Type 2 diabetes mellitus with hyperglycemia; K21.9 Gastro-esophageal reflux disease without esophagitis; K59.00 Constipation, unspecified; R62.7 Adult failure to thrive; Z79.84 Long term (current) use of oral hypoglycemic drugs; Z79.899 Other long term (current) drug therapy; Z87.891 Personal history of nicotine dependence; R79.82 Elevated C-reactive protein (CRP); R74.02 Elevation of levels of lactic acid dehydrogenase [LDH]; M19.90 Unspecified osteoarthritis, unspecified site
CPT/HCPCS: 36415; 71046; 80048; 80053; 82728; 83615; 84484; 85025; 85027; 85379; 85610; 85730; 86140; 93005; 94640; 96374; 99285

== ENCOUNTER 2023-01-16 16:27 | Emergency (ER) | payer MEDICARE ==
[2023-01-16] MEDS ORDERED: MORPHINE SULFATE 4 MG/ML SYRINGE IVP STA (16:43)
--- NOTE | 2023-01-16 16:45 | ED ---
General Adult HPI - General Chief complaint: Fall Stated complaint: FALL Time Seen by Provider: 01/16/23 16:33 Source: patient, RN notes reviewed Mode of arrival: EMS Limitations: no limitations - History of Present Illness Initial comments: 87-year-old male presents emergency department chief complaint of fall. He states that he lost his balance earlier today causing him to trip and fall from standing. He reports that he hit his head on the ground. This occurred around 3 PM today. He admits to pain at his cervical spine. He states he initially had numbness in both arms for around 10 minutes. He states that this has resolved. He was placed in a C-collar by EMS. He took 2 Aleve prior to arrival. PMH includes DM and HTN. - Related Data Home Medications Medication Instructions Recorded Confirmed Cholecalciferol (Vitamin D3) 2,000 unit PO BID 08/20/18 02/16/21 [Vitamin D3] Losartan [Cozaar] 25 mg PO DAILY 08/20/18 02/16/21 Vitamin B Complex 1 cap PO DAILY 08/20/18 02/16/21 Vitamin E (Dl,Tocopheryl Acet) 400 unit PO DAILY 08/20/18 02/16/21 [Vitamin E (400 Iu = 180 mg)] glipiZIDE [Glucotrol] 5 mg PO AC-BRKFST 08/20/18 02/16/21 metFORMIN HCL [metFORMIN HCL ER] 750 mg PO BID 08/20/18 02/16/21 Ascorbic Acid [Vitamin C] 1,000 mg PO DAILY 11/17/20 02/16/21 Cyanocobalamin (Vitamin B-12) 1,000 mcg PO DAILY 11/17/20 02/16/21 [Vitamin B-12] Zinc 50 mg PO DAILY 11/17/20 02/16/21 Albuterol Nebulized [Ventolin 2.5 mg INHALATION RT-Q6H PRN 02/16/21 02/16/21 Nebulized] Previous Rx's Medication Instructions Recorded dexAMETHasone [Dexamethasone] 6 mg PO DAILY #7 tablet 02/20/21 Allergies Allergy/AdvReac Type Severity Reaction Status Date / Time No Known Allergies Allergy Verified 01/16/23 16:35 Review of Systems ROS Statement: Those systems with pertinent positive or pertinent negative responses have been documented in the HPI. ROS Other: All systems not noted in ROS Statement are negative. Past Medical History Past Medical History: Diabetes Mellitus, GERD/Reflux, Hypertension, Oste oarthritis (OA) Additional Past Medical History / Comment(s): not sure why he takes heart medications-thinks preventative due to diabetes, History of Any Multi-Drug Resistant Organisms: None Reported Past Surgical History: Appendectomy, Back Surgery, Orthopedic Surgery, Tonsillectomy Additional Past Surgical History / Comment(s): LT ROTATOR CUFF REPAIR , Past Anesthesia/Blood Transfusion Reactions: No Reported Reaction Past Psychological History: No Psychological Hx Reported Smoking Status: Former smoker Past Alcohol Use History: Rare Past Drug Use History: None Reported - Past Family History Mother Family Medical History: No Reported History General Exam Limitations: no limitations General appearance: alert, in distress Head exam: Present: atraumatic, normocephalic, normal inspection Eye exam: Present: normal appearance, PERRL, EOMI. Absent: scleral icterus, conjunctival injection, periorbital swelling ENT exam: Present: normal exam, mucous membranes moist Neck exam: Present: tenderness. Absent: meningismus, full ROM Respiratory exam: Present: normal lung sounds bilaterally. Absent: respiratory distress, wheezes, rales, rhonchi, stridor Cardiovascular Exam: Present: regular rate, normal rhythm, normal heart sounds. Absent: systolic murmur, diastolic murmur, rubs, gallop, clicks GI/Abdominal exam: Present: soft, normal bowel sounds. Absent: distended, tenderness, guarding, rebound, rigid Extremities exam: Present: normal inspection, full ROM, normal capillary refill, other (Strength in upper and lower extremity is 5 out of 5, sensation intact, radial pulses 2+). Absent: tenderness, pedal edema, joint swelling, calf tende rness Back exam: Present: normal inspection Neurological exam: Present: alert, oriented X3, CN II-XII intact Psychiatric exam: Present: normal affect, normal mood Skin exam: Present: warm, dry, intact, normal color. Absent: rash Course Vital Signs 01/16/23 01/16/23 16:31 18:29 Temperature 98.2 F Pulse Rate 102 H 107 H Respiratory 20 16 Rate Blood Pressure 223/109 198/104 O2 Sat by Pulse 99 95 Oximetry Medical Decision Making - Medical Decision Making Was pt. sent in by a medical professional or institution (, PA, OPERATIONS INTERN, urgent care, hospital, or usp...) When possible be specific @ -No Did you speak to anyone other than the patient for history (EMS, parent, family, police, friend...)? What history was obtained from this source @ -ems Did you review nursing and triage notes (agree or disagree)? Why? @ -I reviewed and agree with nursing and triage notes Were old charts reviewed (outside hosp., previous admission, EMS record, old EKG, old radiological studies, urgent care reports/EKG's, usp records)? Report findings @ -No old charts were reviewed Differential Diagnosis (chest pain, altered mental status, abdominal pain women, abdominal pain men, vaginal bleeding, weakness, fever, dyspnea, syncope, headache, dizziness, GI bleed, back pain, seizure, CVA, palpatations, mental health, musculoskeletal)? @ -Fall, intracranial bleed, cervical fracture, this list is not all-inclusive EKG interpreted by me (3pts min.). @ -None X-rays interpreted by me (1pt min.). @ -None done CT interpreted by me (1pt min.). @ -CT brain shows no acute intracranial process CT C-spine shows complex C1 displaced fracture, type II dens fracture displaced anteriorly by 8 mm U/S interpreted by me (1pt. min.). @ -None done What testing was considered but not performed or refused? (CT, X-rays, U/S, l abs)? Why? @ -None What meds were considered but not given or refused? Why? @ -None Did you discuss the management of the patient with other professionals (professionals i.e. , PA, OPERATIONS INTERN, lab, RT, psych nurse, health and social care teacher, paint roller covers supervisor, teacher, planned giving officer, heel caser)? Give summary @ -Management discussed with Dr. Moore at [facility] who is accepting of the transfer. Was smoking cessation discussed for >3mins.? @ -No Was critical care preformed (if so, how long)? @ -No Were there social determinants of health that impacted care today? How? (Homelessness, low income, unemployed, alcoholism, drug addiction, transportation, low edu. Level, literacy, decrease access to med. care, halfway, rehab)? @ -No Was there de-escalation of care discussed even if they declined (Discuss DNR or withdrawal of care, Hospice)? DNR status @ -No What co-morbidities impacted this encounter? (DM, HTN, Smoking, COPD, CAD, Cancer, CVA, ARF, Chemo, Hep., AIDS, mental health diagnosis, sleep apnea, morbid obesity)? @ -None Was patient admitted / discharged? Hospital course, mention meds given and route, prescriptions, significant lab abnormalities, going to OR and other pertinent info. @ -Transferred. Patient presented to the emergency department for chief complaint of fall. Patient lost his balance causing him to fall from standing. He hit his head on the ground. He denies blood thinners. He was placed in a cervical collar by EMS. CT brain and C-spine obtained. CT brain shows no acute cranial process. CT C-spine shows complex C1 displaced fracture, type II dens fracture displaced anteriorly by 8 mm. Patient has good strength in upper and lower extremities, sensation intact. Patient was given 4 mg IV morphine he reports no improvement of his pain with this medication. He was then given 0.5 mg of Dilaudid with minimal improvement. Patient also given 10 mg Decadron and another dose of 0.5 mg Dilaudid. Galvin catheter placed. Laboratory studies obtained which show CBC unremarkable, PT 10.4, INR 0.9, APTT 23.2; CMP shows sodium 141, potassium 4.2, chloride 109, BUN 25, creatinine 1.32 Patient will be transferred to another facility for higher level of care. Management was discussed with Dr. Moore at [facility] who is accepting of the transfer. Patient to remain in c-collar and be transferred via EMS to [facility]. Transfer was delayed on account of waiting for paperwork to be signed. Case discussed with CLAUDIA Bender Undiagnosed new problem with uncertain prognosis? @ -No Drug Therapy requiring intensive monitoring for toxicity (Heparin, Nitro, Insulin, Cardizem)? @ -No Were any procedures done? @ -No Diagnosis/symptom? @ -complex C1 displaced fracture, type II dens fracture displaced anteriorly by 8mm] Acute, or Chronic, or Acute on Chronic? @ -acute Uncomplicated (without systemic symptoms) or Complicated (systemic symptoms)? @ -uncomplicated Side effects of treatment? @ -No Exacerbation, Progression, or Severe Exacerbation? @ -No Poses a threat to life or bodily function? How? (Chest pain, [place], [place], pneumonia, PE, COPD, DKA, ARF, appy, cholecystitis, CVA, Diverticulitis, Homicidal, Suicidal, threat to staff... and all critical care pts) @ -cervical fracture - Lab Data Result diagrams: 01/16/23 18:22 01/16/23 18:22 Lab Results 01/16/23 01/16/23 01/16/23 Range/Units 18:22 18:22 18:22 WBC 9.2 (3.8-10.6) k/uL RBC 4.82 (4.30-5.90) m/uL Hgb 15.3 (13.0-17.5) gm/dL Hct 45.5 (39.0-53.0) % MCV 94.4 (80.0-100.0) fL MCH 31.7 (25.0-35.0) pg MCHC 33.6 (31.0-37.0) g/dL RDW 13.2 (11.5-15.5) % Plt Count 228 (150-450) k/uL MPV 8.5 Neutrophils % 77 % Lymphocytes % 14 % Monocytes % 5 % Eosinophils % 1 % Basophils % 0 % Neutrophils # 7.1 (1.3-7.7) k/uL Lymphocytes # 1.3 (1.0-4.8) k/uL Monocytes # 0.5 (0-1.0) k/uL Eosinophils # 0.1 (0-0.7) k/uL Basophils # 0.0 (0-0.2) k/uL PT 10.4 (10.0-12.5) sec INR 0.9 (<1.2) APTT 23.2 (22.0-30.0) sec Sodium 141 (137-145) mmol/L Potassium 4.2 (3.5-5.1) mmol/L Chloride 109 H (98-107) mmol/L Carbon Dioxide 17 L (22-30) mmol/L Anion Gap 15 mmol/L BUN 25 H (9-20) mg/dL Creatinine 1.32 H (0.66-1.25) mg/dL Est GFR (CKD-EPI)AfAm 56 (>60 ml/min/1.73 sqM) Est GFR (CKD-EPI)NonAf 48 (>60 ml/min/1.73 sqM) Glucose 170 H (74-99) mg/dL Calcium 9.7 (8.4-10.2) mg/dL Total Bilirubin 0.9 (0.2-1.3) mg/dL AST 30 (17-59) U/L ALT 19 (4-49) U/L Alkaline Phosphatase 91 (38-126) U/L Total Protein 7.3 (6.3-8.2) g/dL Albumin 4.3 (3.5-5.0) g/dL Disposition Clinical Impression: C1 cervical fracture, Anterior displaced type ii dens fracture, initial encou nter for closed fracture Disposition: OTHER INSTITUTION NOT DEFINED Condition: Stable Referrals: None,Stated [REFERRING] - 1-2 days - Out of Hospital Transfer - Req. Specs Out of Hospital Transfer - Requested Specifics: Other Emergency Center ([facility])
[2023-01-16 16:51] VITALS: TEMP 98.2
[2023-01-16] MEDS ORDERED: HYDROmorphone 0.5 MG/0.5 ML SYRINGE IVP STA ×3 (18:12→20:40)
--- NOTE | 2023-01-16 18:12 | CT ---
EXAMINATION TYPE: CT brain cspine wo con DATE OF EXAM: 01/16/2023 COMPARISON: Pain after fall and trauma to head/neck HISTORY: pain after fall and hit head/neck CT DLP: 1369.5 mGycm. Automated Exposure Control for Dose Reduction was Utilized. TECHNIQUE: CT scan of the head and cervical spine are performed without contrast. COMPARISON: 11/17/2020 FINDINGS: There is no acute intracranial hemorrhage, mass effect, or midline shift identified. The ventricles a nd sulci are within normal limits in size. The globes are intact and the visualized sinuses are clear . Foramen magnum is unremarkable. Cervical spine is visualized in its entirety from C1 through upper thoracic levels. There is a C1 dis placed complex fracture and a type II dens fracture displaced anteriorly by 8 mm. 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 Results discussed with covering ED attending just before 6:00 PM, to ensure rapid communication of re sults. IMPRESSION: CT CERVICAL SPINE: Complex C1 displaced fracture. Type II dens fracture displaced anteriorly by 8mm. CT HEAD: No acute process.
[2023-01-16 18:56] LABS: Basophils % (A) 0 %; Eosinophils # (A) 0.1 k/uL (0-0.7); Eosinophils % (A) 1 %; HCT 45.5 % (39.0-53.0); HGB 15.3 gm/dL (13.0-17.5); Lymphocytes # (A) 1.3 k/uL (1.0-4.8); Lymphocytes % (A) 14 %; MCH 31.7 pg (25.0-35.0); MCHC 33.6 g/dL (31.0-37.0); MCV 94.4 fL (80.0-100.0); Mean Platelet Volume 8.5; Monocytes # (A) 0.5 k/uL (0-1.0); Monocytes % (A) 5 %; Neutrophils # (A) 7.1 k/uL (1.3-7.7); Neutrophils % (A) 77 %; Platelet Count 228 k/uL (150-450); RBC 4.82 m/uL (4.30-5.90); RDW 13.2 % (11.5-15.5); WBC 9.2 k/uL (3.8-10.6)
[2023-01-16] MEDS ORDERED: DEXAMETHASONE SOD PHOSPHATE 10 MG/ML 1 ML VIAL IVP STA (19:07)
[2023-01-16 19:08] LABS: INR 0.9 (<1.2); Partial Thromboplastin Time 23.2 sec (22.0-30.0); Prothrombin Time 10.4 sec (10.0-12.5)
[2023-01-16 19:09] LABS: ALT 19 U/L (4-49); AST 30 U/L (17-59); African American GFR (CKD) 56 (>60 ml/min/1.73 sqM); Albumin 4.3 g/dL (3.5-5.0); Alkaline Phosphatase 91 U/L (38-126); Anion Gap 15 mmol/L; Blood Urea Nitrogen 25 mg/dL (9-20); Calcium 9.7 mg/dL (8.4-10.2); Carbon Dioxide 17 mmol/L (22-30); Chloride 109 mmol/L (98-107); Glucose 170 mg/dL (74-99); Non-African American GFR(CKD) 48 (>60 ml/min/1.73 sqM); Potassium 4.2 mmol/L (3.5-5.1); Sodium 141 mmol/L (137-145); Total Bilirubin 0.9 mg/dL (0.2-1.3); Total Protein 7.3 g/dL (6.3-8.2)
[2023-01-16 20:45] VITALS: BP 193/106; PULSE 116; RESP 18
== END 2023-01-16 20:46 | disposition other institution (70) ==
LOC: EC 16:27
DX: S12.000A Unspecified displaced fracture of first cervical vertebra, initial encounter for closed fracture (principal); S12.110A Anterior displaced Type II dens fracture, initial encounter for closed fracture; E11.9 Type 2 diabetes mellitus without complications; I10 Essential (primary) hypertension; Z79.84 Long term (current) use of oral hypoglycemic drugs; Z79.899 Other long term (current) drug therapy; Z87.891 Personal history of nicotine dependence; W01.0XXA Fall on same level from slipping, tripping and stumbling without subsequent striking against object, initial encounter
CPT/HCPCS: 99285; 96374; 96375 ×2; 96376 ×2; 51702; 36415; 80053; 85025; 85610; 85730; 72125; 70450; J2270; J1100; J1170